=== PATIENT | male | born 1940 | race Caucasian/White ===

== ENCOUNTER 2018-04-12 02:13 | Observation (INO) ==
[2018-04-12 02:33] LABS: Basophils # 0.1 K/mcL (0.0-0.2); Basophils % 0.8 %; Eosinophils # 0.3 K/mcL (0.0-0.6); Eosinophils % 4.2 %; Hematocrit 45.8 % (37.5-50.1); Immature Granulocytes % 0.3 % (0-4); Lymphocytes # 2.2 K/mcL (0.6-4.6); Lymphocytes % 30.1 %; Mean Corpuscular HGB Conc 34.9 g/dL (31.6-35.5); Mean Corpuscular Hemoglobin 33.2 pg (28.0-33.3); Mean Platelet Volume 9.4 fL (9.4-12.4); Monocytes # 0.7 K/mcL (0.0-1.3); Monocytes % 9.3 %; Neutrophils # 4.1 K/mcL (1.6-8.9); Platelet Count 200 K/mcL (140-400); Red Blood Count 4.82 M/mcL (4.19-5.50); Red Cell Distribution Width 12.6 % (11.5-14.5); Segmented Neutrophils % 55.3 %
[2018-04-12 02:48] LABS: Prothrombin Time 11.1 Seconds (9.4-12.1)
[2018-04-12 02:51] LABS: Activated Partial Thrombo Time 28.3 Seconds (26.0-36.0)
[2018-04-12 02:55] LABS: Alanine Aminotransferase 12 Units/L (7-52); Albumin 3.9 g/dL (3.5-5.7); Albumin/Globulin Ratio 1.9 (1.1-2.2); Alkaline Phosphatase 57 Units/L (34-104); Aspartate Amino Transferase 14 Units/L (13-39); BUN/Creatinine Ratio 13 (6-26); Bilirubin,Direct 0.1 mg/dL (0.0-0.2); Bilirubin,Indirect 0.5 mg/dL (0.0-1.2); Bilirubin,Total 0.6 mg/dL (0.3-1.0); Blood Urea Nitrogen 16 mg/dL (8-23); Carbon Dioxide 21 mEq/L (23-29); Chloride 103 mEq/L (98-107); Creatine Kinase 58 Units/L (30-223); Ethanol < 10 mg/dL (Less than 10); Globulin 2.1 g/dL (2.4-3.5); Glucose 127 mg/dL (70-105); Osmolality,Calculated 287 (280-300); Potassium 3.5 mEq/L (3.5-5.1); Sodium 137 mEq/L (136-145); Troponin I < 0.03 ng/mL (< 0.04); eGFR For Non-African Americans 58 (> 60)
--- NOTE | 2018-04-12 03:03 | Emergency Department Note ---
Disposition Clinical Impression: Altered mental status Qualifiers: Altered mental status type: unspecified Qualified Code(s): R41.82 - Altered mental status, unspecified Disposition: Admitted As Inpatient Condition: Fair Referrals: NONE,PCP [Primary Care Provider] - Forms: ED Satisfaction Letter Time of Disposition: 04:09 Altered Mental Status HPI - General Chief Complaint: ED Altered Mental Status Stated Complaint: poss stroke Time Seen by Provider: 04/12/18 02:20 Source: family, EMS Mode of arrival: EMS Limitations: altered mental status Nursing Notes Reviewed: Yes Vital Signs Reviewed: Yes - History of Present Illness HPI Narrative: 77-year-old male presents to the emergency department complaining of altered mental status. He presented here via EMS as family said they found him unconscious on the ground between the bed and the restroom. They were he was having a stroke as he seemed to be slurring his words unable to get words out. Presently called EMS. When EMS arrived he said that he was responsive to voice but it would did not seem to be oriented. He was alert to that. Patient only has cardiac history according to family. His heart get further history from patient but they said he was acting normal prior to this event. He is normally at home takes care of himself and can walk around with no difficulty. He said he does have history of Alzheimer's and this could be worsening they say he has never been this bad. Further history was difficult to get due to patient's altered mental status. - Related Data Allergies Allergy/AdvReac Type Severity Reaction Status Date / Time No Known Allergies Allergy Verified 04/12/18 03:07 Limitations: ROS unobtainable due to patients medical condition Past Medical History - Past Medical History Attestation: Yes The following information was validated with the patient. Source: patient Medical history: Reports: no medical history Psychiatric history: Reports: no psych history - Social History Smoking Status: Former smoker Smokeless Tobacco Status: No Alcohol use: Reports: none Drug use: Reports: none Physical Exam - General Limitations: altered mental status General appearance: alert, in no apparent distress - Head Head exam: atraumatic, normocephalic, normal inspection - Eye Eye exam: Present: normal appearance, PERRL, EOMI - ENT ENT exam: normal exam, normal oropharynx, mucous membranes moist - Neck Neck exam: Present: normal inspection, full ROM, trachea midline - Chest Chest inspection: Present: normal inspection, symmetric chest wall rise. Absent: tenderness - Respiratory Respiratory exam: Present: normal lung sounds bilaterally. Absent: respiratory distress, wheezes, accessory muscle use - Cardiovascular Cardiovascular exam: Present: regular rate, normal rhythm, normal heart sounds - Abdominal Exam Abdominal exam: Present: soft, Non-Tender, normal bowel sounds. Absent: tenderness, distention, guarding, rebound, rigidity - Extremities Exam Extremities exam: Present: normal inspection, full ROM. Absent: tenderness, pedal edema - Back Exam Back exam: Present: normal inspection, full ROM. Absent: tenderness - Neurological Exam Neurological exam: Present: alert - Expanded Neurological Exam Patient oriented to: Present: person. Absent: place, time Speech: Present: fluid speech Cranial nerves: EOM function (II, III, IV, ): Normal, facial sensation (V): Normal, facial palsy (VII): Normal, spinal accessory function (XI): Normal, ton jackie deviation (XII): Normal Motor strength - LUE: 4/5 Motor strength - RUE: 4/5 Motor strength - LLE: 4/5 Motor strength - RLE: 4/5 Upper motor neuron exam: panchito neglect: Absent bilaterally, pronator drift: Absent bilaterally Coma Scale Eye Opening: Spontaneous Coma Scale Motor Response: Localizes to Pain Coma Scale Verbal Response: Confused Coma Scale Total: 13 - Skin Skin exam: Present: warm, dry, intact, normal color Course Course Narrative: Stroke alert was not called: The patient as he had no focal deficits to one side as he was moving and sitting up in the bed but he deftly was confused and his altered. We will get a head neck CT due to him falling. There is noticeable trauma to the head or anywhere else on the body. We will also do broad workup on the patient to find a source of his altered mental status. Disposition most likely will be admission for further evaluation. Vital Signs Temperature 96.6 F L 04/12/18 02:17 Pulse Rate 92 04/12/18 02:17 Respiratory Rate 18 04/12/18 02:17 Blood Pressure 196/103 04/12/18 02:17 O2 Sat by Pulse Oximetry 95 04/12/18 02:17 Temperature 96.6 F L 04/12/18 02:17 Pulse Rate 81 04/12/18 03:08 Respiratory Rate 18 12/04/18 03:08 Blood Pressure 193/98 12/04/18 03:08 O2 Sat by Pulse Oximetry 95 04/12/18 03:08 Oxygen Delivery Oxygen Delivery Room Air Altered Mental Status - MDM Narrative Medical decision making narrative: 77-year-old male here with altered mental status. When he first arrived he was able to move all limbs of stroke alert was not called. He was confused he was alert to self and time but not to place. We did a large workup on him which came back showing no acute abnormalities. CT had neck are both negative. There is no signs of trauma. Chest x-ray also was normal. Family stated in the room with him and they said that as time went along he was becoming a little better but due to the syncopal event we felt that admission was warranted. They said he is not fully back to baseline but he is getting closer. He does have history of Alzheimer's they are wondering if this that was what caused this. Patient has had no recent illnesses prior to this event. Patient is stable at this time. I spoke with the hospitalist Dr. Kwan who agreed to admit the patient to their service. Patient going to be admitted in stable condition. Cervical Spine CT 04/12/18 02:21 IMPRESSION: No definite acute abnormality of the cervical spine. D/ / Blue Madrid MD / Blue Madrid MD Interpreting Provider: Blue Madrid MD Chest X-Ray 04/12/18 02:21 IMPRESSION: Negative portable chest. D/ / Blue Madrid MD / Blue Madrid MD Interpreting Provider: Blue Madrid MD Head CT 04/12/18 02:21 IMPRESSION: Generalized atrophy and moderate chronic small vessel ischemic white matter disease with no acute intracranial abnormality. D/ / Festus Sunshine MD / Festus Sunshine MD Interpreting Provider: Festus Sunshine MD - Medical Records Medical records reviewed: Yes I reviewed the patient's medical records. - Lab Data Lab results reviewed: Yes I reviewed the patient's lab results. Result diagrams: 04/12/18 02:21 04/12/18 02:21 Lab Results 04/12/18 04/12/18 04/12/18 Range/Units 02:21 02:21 02:21 WBC 7.4 (4.3-11.1) K/mcL RBC 4.82 (4.19-5.50) M/mcL Hgb 16.0 (12.9-16.9) g/dL Hct 45.8 (37.5-50.1) % MCV 95.0 (83.0-100.0) fL MCH 33.2 (28.0-33.3) pg MCHC 34.9 (31.6-35.5) g/dL RDW 12.6 (11.5-14.5) % Plt Count 200 (140-400) K/mcL MPV 9.4 (9.4-12.4) fL Immature Gran % 0.3 (0-4) % Seg Neutrophils % 55.3 % Lymphocytes % 30.1 % Monocytes % 9.3 % Eosinophils % 4.2 % Basophils % 0.8 % Neutrophils # 4.1 (1.6-8.9) K/mcL Lymphocytes # 2.2 (0.6-4.6) K/mcL Monocytes # 0.7 (0.0-1.3) K/mcL Eosinophils # 0.3 (0.0-0.6) K/mcL Basophils # 0.1 (0.0-0.2) K/mcL PT 11.1 (9.4-12.1) Seconds INR 1.0 APTT 28.3 (26.0-36.0) Seconds Sodium 137 (136-145) mEq/L Potassium 3.5 (3.5-5.1) mEq/L Chloride 103 (98-107) mEq/L Carbon Dioxide 21 L (23-29) mEq/L BUN 16 (8-23) mg/dL Creatinine 1.21 (0.70-1.30) mg/dL Est GFR ( Amer) > 60 (> 60) Est GFR (Non-Af Amer) 58 L (> 60) BUN/Creatinine Ratio 13 (6-26) Glucose 127 H (70-105) mg/dL Calculated Osmolality 287 (280-300) Calcium 9.0 (8.6-10.3) mg/dL Total Bilirubin 0.6 (0.3-1.0) mg/dL Direct Bilirubin 0.1 (0.0-0.2) mg/dL Indirect Bilirubin 0.5 (0.0-1.2) mg/dL AST 14 (13-39) Units/L ALT 12 (7-52) Units/L Alkaline Phosphatase 57 (34-104) Units/L Ammonia (16-53) mcmol/L Creatine Kinase 58 (30-223) Units/L Troponin I < 0.03 (< 0.04) ng/mL Serum Total Protein 6.0 L (6.4-8.9) g/dL Albumin 3.9 (3.5-5.7) g/dL Globulin 2.1 L (2.4-3.5) g/dL Albumin/Globulin Ratio 1.9 (1.1-2.2) Urine Color (Yellow) Urine Clarity (Clear) Urine pH (5.0-8.0) pH Units Ur Specific [place] (1.010-1.025) Urine Protein (Neg-Trace) mg/dL Urine Glucose (UA) (Normal) mg/dL Urine Ketones (Negative) mg/dL Urine Blood (Negative) Urine Nitrite (Negative) Urine Bilirubin (Negative) Urine Urobilinogen (Normal) mg/dL Ur Leukocyte Esterase (Negative) Urine Microscopic RBC (0-3) per hpf Urine Microscopic WBC (0-3) per hpf Ur Squamous Epith Cells (None-Few) per lpf Urine Bacteria (None-Few) per hpf Hyaline Casts (None-Few) per lpf Ur Culture Indicated? (NO) Urine Opiates Screen (Yggtxs=955) ng/mL Ur Barbiturates Screen (Fdaljr=125) ng/mL Ur Phencyclidine Scrn (Cutoff=25) ng/mL Ur Amphetamines Screen (Hfjhgy=9327) ng/mL U Benzodiazepines Scrn (Jkzqcb=548) ng/mL Urine Cocaine Screen (Cutoff= 300) ng/mL U Marijuana (THC) Screen (Cutoff = 50) ng/mL Ur Drug Screen Interp Ethyl Alcohol < 10 (Less than 10) mg/dL 12/08/2504/12/18 04/12/18 Range/Units 02:21 03:21 03:21 WBC (4.3-11.1) K/mcL RBC (4.19-5.50) M/mcL Hgb (12.9-16.9) g/dL Hct (37.5-50.1) % MCV (83.0-100.0) fL MCH (28.0-33.3) pg MCHC (31.6-35.5) g/dL RDW (11.5-14.5) % Plt Count (140-400) K/mcL MPV (9.4-12.4) fL Immature Gran % (0-4) % Seg Neutrophils % % Lymphocytes % % Monocytes % % Eosinophils % % Basophils % % Neutrophils # (1.6-8.9) K/mcL Lymphocytes # (0.6-4.6) K/mcL Monocytes # (0.0-1.3) K/mcL Eosinophils # (0.0-0.6) K/mcL Basophils # (0.0-0.2) K/mcL PT (9.4-12.1) Seconds INR APTT (26.0-36.0) Seconds Sodium (136-145) mEq/L Potassium (3.5-5.1) mEq/L Chloride (98-107) mEq/L Carbon Dioxide (23-29) mEq/L BUN (8-23) mg/dL Creatinine (0.70-1.30) mg/dL Est GFR ( Amer) (> 60) Est GFR (Non-Af Amer) (> 60) BUN/Creatinine Ratio (6-26) Glucose (70-105) mg/dL Calculated Osmolality (280-300) Calcium (8.6-10.3) mg/dL Total Bilirubin (0.3-1.0) mg/dL Direct Bilirubin (0.0-0.2) mg/dL Indirect Bilirubin (0.0-1.2) mg/dL AST (13-39) Units/L ALT (7-52) Units/L Alkaline Phosphatase (34-104) Units/L Ammonia 51 (16-53) mcmol/L Creatine Kinase (30-223) Units/L Troponin I (< 0.04) ng/mL Serum Total Protein (6.4-8.9) g/dL Albumin (3.5-5.7) g/dL Globulin (2.4-3.5) g/dL Albumin/Globulin Ratio (1.1-2.2) Urine Color Yellow (Yellow) Urine Clarity Clear (Clear) Urine pH 6.5 (5.0-8.0) pH Units Ur Specific [place] 1.010 (1.010-1.025) Urine Protein Trace (Neg-Trace) mg/dL Urine Glucose (UA) 100 H (Normal) mg/dL Urine Ketones Negative (Negative) mg/dL Urine Blood Trace H (Negative) Urine Nitrite Negative (Negative) Urine Bilirubin Negative (Negative) Urine Urobilinogen Normal (Normal) mg/dL Ur Leukocyte Esterase Negative (Negative) Urine Microscopic RBC 0-3 (0-3) per hpf Urine Microscopic WBC 0-3 (0-3) per hpf Ur Squamous Epith Cells Moderate H (None-Few) per lpf Urine Bacteria None Seen (None-Few) per hpf Hyaline Casts None Seen (None-Few) per lpf Ur Culture Indicated? NO (NO) Urine Opiates Screen Negative (Qhcckp=458) ng/mL Ur Barbiturates Screen Negative (Tpmowa=937) ng/mL Ur Phencyclidine Scrn Negative (Cutoff=25) ng/mL Ur Amphetamines Screen Negative (Dccefq=4894) ng/mL U Benzodiazepines Scrn Negative (Pllowk=384) ng/mL Urine Cocaine Screen Negative (Cutoff= 300) ng/mL U Marijuana (THC) Screen Negative (Cutoff = 50) ng/mL Ur Drug Screen Interp See Below Ethyl Alcohol (Less than 10) mg/dL - Radiology Data Radiology results reviewed: Yes I reviewed the patient's radiology results. - EKG Data EKG attestation: Yes I reviewed and interpreted this EKG. EKG results narrative: EKG done at 0 223 review myself and the attending shows sinus rhythm a rate of 93, [place] able to 26, QRS 113, QTC 476. There is no acute ST changes no acute T- wave changes there is ST depression in leads V4 through V6. No heart block, hypertrophy, heart strain. No WPW/Brugada/HOCM. No old EKG to compare with TPA Checklist - LKW: 3-4.5 hrs Add. Warnings/Precautions Patient/family understanding: The patient/family members have been counseled and understood the risk, benefit, and alternatives of treatment. Attestation Statement - Attestation Attestation: Dr. Rosales note: Patient was seen in conjunction with resident Dr. Fito Ragsdale; please see his charting for complete documentation. I spent [id number] time with the patient and I agree with the patient's treatment and disposition. Patient via medic after heard him pass out the bathroom. He was on the floor but moving all extremities gradually more arousable and round on arrival. At baseline his mental status is not normal as he has chronic dementia according to his son who arrives at bedside. There is no external signs of trauma. He follows commands. He moves all extremities. Testing is unremarkable. Mental status is slowly coming back to normal. Admitted for syncope and altered mental status to the hospitalist and improved condition at AM
[2018-04-12 03:39] LABS: Amphetamine Screen,Urine Negative ng/mL (Cutoff=1000); Barbiturate Screen,Urine Negative ng/mL (Cutoff=200); Benzodiazepines Screen,Urine Negative ng/mL (Cutoff=200); Cannabinoid Screen,Urine Negative ng/mL (Cutoff = 50); Cocaine Screen,Urine Negative ng/mL (Cutoff= 300); Opiate Screen,Urine Negative ng/mL (Cutoff=300); Phencyclidine Screen,Urine Negative ng/mL (Cutoff=25)
[2018-04-12 03:44] LABS: Bacteria,Urine None Seen per hpf (None-Few); Bilirubin,Urine Negative (Negative); Blood,Urine Trace (Negative); Clarity,Urine Clear (Clear); Color,Urine Yellow (Yellow); Glucose,Urine (UA) 100 mg/dL (Normal); Hyaline Casts,Urine None Seen per lpf (None-Few); Ketones,Urine Negative (Negative); Leukocyte Esterase,Urine Negative (Negative); Nitrite,Urine Negative (Negative); PH,Urine 6.5 pH Units (5.0-8.0); Protein,Urine Trace mg/dL (Neg-Trace); RBC,Urine 0-3 per hpf (0-3); Squamous Epithelial Cell,Urine Moderate per lpf (None-Few); Urobilinogen,Urine Normal (Normal); WBC,Urine 0-3 per hpf (0-3)
[2018-04-12] MEDS ORDERED: Naloxone 0.4 MG/ML INJ IVP PRN (05:54)
[2018-04-12] MEDS ORDERED: Acetaminophen 325 MG TABLET PO PRN (05:54)
--- NOTE | 2018-04-12 06:11 | Internal Med History&Physical ---
Date of Encounter: 04/12/18 Time of Encounter: 05:30 Internal Medicine - H&P: HPI Chief complaint: syncope; confusion Admitted From: Emergency Dept Plans for Post Hospital Care: Home History of present illness: Mr. Adamson is a 77 year old male who presents to the ER this morning after sustaining a syncopal event. This was unwitnessed, His found him passed out on the floor. She called her children and EMS who brought patient to the hospital. Upon arrival to the ER, patient was confused, disoriented, and mini indra talkative or arousable. Since then, he has improved dramatically according to the son. However, he still remains confused and disoriented. Patient is unable to provide any history to me. History is obtained exclusively from his son. He is alert and oriented 1 (self only). He denies any chest pain, shortness of breath, chest pressure, nausea, or vomiting. Patient's son confirms patient has a history of heart disease and had an OK about 10 years ago. Patient's son denies patient having history of dementia. However, upon further questioning, patient has been suffering from significant memory loss, forgetfulness, and some odd behaviors at home for last year. He has never been missing or wandered off. He did drive his car recently to local outboard motor mechanic shop for repairs and does not remember how he got there. There have been other family members concerned that he has underlying dementia, but he has not been formally diagnosed. Regarding his medications, his son does not know any of his medications and we do not have access to any medication list. There is concern that patient may have inadvertently taken extra medication or an appropriate medication as prescribed. Patient does not have a history of diabetes. There was no reports of hypoglycemia by EMS or ER. Past Med Surg Social Fam HX - Past Medical History Medical history: hypertension, myocardial infarction Psychiatric history: no psych history - Social History Smoking Status: Former smoker Smokeless Tobacco Status: No Alcohol use: none Drug use: none Internal Medicine - H&P: Meds Allergy/AdvReac Type Severity Reaction Status Date / Time No Known Allergies Allergy Verified 04/12/18 03:07 ROS unobtainable: due to mental status Review of systems: as per [place] per son; otherwise unobtainable - Constitutional Vitals: Temp Pulse Resp BP Pulse Ox 98.0 F 85 16 184/96 92 12/04/18 04:55 04/12/18 04:55 04/12/18 04:55 04/12/18 04:55 04/12/18 04:55 General appearance: Present: cooperative, A&O X 3, pleasant, no acute distress, loss of weight Exam: pleasantly confused; no acute distress - Head Head exam: Present: atraumatic (no sign of abrasion, laceration, bruising or other injury to suspect head trauma), normal inspection - Eye Eye exam: Present: EOMI, PERRL. Absent: scleral icterus Pupils: Present: normal accommodation - ENT ENT exam: Present: mucous membranes dry, normal exam, normal oropharynx - Neck Neck exam general surgery: Present: full ROM, supple. Absent: tenderness, nuchal rigidity, thyromegaly - Expanded Neck Exam Neck exam: Absent: carotid bruit - Respiratory Respiratory exam: Present: CTAB. Absent: chest wall tenderness, rales, respiratory distress, rhonchi, wheezes - Cardiovascular Cardiovascular exam: Present: distant heart sounds, RRR, +S1, +S2. Absent: diastolic murmur, JVD, systolic murmur, tachycardia - GI/Abdominal GI/Abdominal exam: Present: normal bowel sounds, soft. Absent: guarding, hepatomegaly, rebound, splenomegaly, tenderness - Extremities Exam Extremities exam: Present: full ROM, normal capillary refill, warm, radial pulses palpable and symmetrical. Absent: calf tenderness, joint swelling, pedal edema, tenderness - Back Exam Back exam: Absent: CVA tenderness (L), CVA tenderness (R) - Neurological Exam Neurological exam: Present: alert, CN II-XII intact, no focal deficits, strengths equal and symetr throughout. Absent: motor sensory deficit, oriented X3, pronater drift, facial droop, speech deficit - Psychiatric Psychiatric exam: Present: flat affect. Absent: homicidal ideation, suicidal ideation - Skin Skin exam: Present: dry, intact, warm Internal Med - H&P Results - Labs CBC & Chem 7: 04/12/18 02:21 04/12/18 02:21 Labs: Short CBC 04/12/18 Range/Units 02:21 WBC 7.4 (4.3-11.1) K/mcL Hgb 16.0 (12.9-16.9) g/dL Hct 45.8 (37.5-50.1) % Plt Count 200 (140-400) K/mcL Neutrophils # 4.1 (1.6-8.9) K/mcL BMP 04/12/18 02:21 Sodium 137 Potassium 3.5 Chloride 103 Carbon Dioxide 21 L BUN 16 Creatinine 1.21 Glucose 127 H Calcium 9.0 Cardiac Enzymes 04/12/18 Range/Units 02:21 Troponin I < 0.03 (< 0.04) ng/mL Liver Function 04/12/18 Range/Units 02:21 Total Bilirubin 0.6 (0.3-1.0) mg/dL Direct Bilirubin 0.1 (0.0-0.2) mg/dL AST 14 (13-39) Units/L ALT 12 (7-52) Units/L Alkaline Phosphatase 57 (34-104) Units/L Albumin 3.9 (3.5-5.7) g/dL Urine 04/12/18 Range/Units 03:21 Urine Color Yellow (Yellow) Urine Clarity Clear (Clear) Urine pH 6.5 (5.0-8.0) pH Units Ur Specific [place] 1.010 (1.010-1.025) Urine Protein Trace (Neg-Trace) mg/dL Urine Glucose (UA) 100 H (Normal) mg/dL - EKG Data -: EKG Interpreted by Myself - EKG Data Prior EKG available for review: yes Interpretation IM: ischemic changes EKG comments: 04/12/18 06:[address]-T depression slightly. - Impressions ITS Impressions Cervical Spine CT 04/12/18 02:21 IMPRESSION: No definite acute abnormality of the cervical spine. D/ / Blue Madrid MD / Blue Madrid MD Interpreting Provider: Blue Madrid MD Chest X-Ray 04/12/18 02:21 IMPRESSION: Negative portable chest. D/ / Blue Madrid MD / Blue Madrid MD Interpreting Provider: Blue Madrid MD Head CT 04/12/18 02:21 IMPRESSION: Generalized atrophy and moderate chronic small vessel ischemic white matter disease with no acute intracranial abnormality. D/ / Festus Sunshine MD / Festus Sunshine MD Interpreting Provider: Festus Sunshine MD - Diagnostic Studies Chest x-ray Status: image reviewed by me (negative) - Assessment and plan (1) Syncope Current Visit: Yes Status: Acute Assessment and plan: 1. Will cycle troponins, EKG's, and place on telemetry. 2. Will order ECHO and carotid Dopplers. 3. Will monitor glucose levels for hypoglycemia. 4. Will monitor serial neurochecks and order MRI brain. 5. Need to obtain and verify home medication list; given his forgetfulness, I am concerned about medication misuse. Qualifiers: Syncope type: unspecified Qualified Code(s): R55 - Syncope and collapse (2) Encephalopathy acute Current Visit: Yes Status: Acute Assessment and plan: 1. Urinalysis does not suggest UTI. 2. Need to obtain and confirm home meds list -- concern for polypharmacy and/or medication misuse. 3. Do not suspect stroke based upon history obtained from son and clinical exam. 4. Neurochecks Q4hour and will order MRI brain. (3) DVT prophylaxis Current Visit: Yes Status: Acute Assessment and plan: 1. Heparin SQ.
[2018-04-12] MEDS: 0.9 % Sodium Chloride w KCl 20 MEQ/1,000 ML MLS IVC SCH ×2 (06:51→18:17)
[2018-04-12] MEDS: *HR* Heparin 5,000 UNIT/ML VIAL SQ SCH ×2 (06:52→18:04)
[2018-04-12] MEDS: hydroCHLOROthiazide 25 MG TABLET PO SCH (12:22)
--- NOTE | 2018-04-12 13:01 | EEG/EMG/Oth Biometrics Report ---
EEG Procedure Report EEG Procedure: Routine EEG Procedure Note: This is a routine 21 channel digital EEG performed utilizing 10- 20 international electrode placement system. FINDINGS: Patient has a predominant waking background frequency that is average voltage 4 to 8 Hertz delta and theta activity in the posterior region, low amplitude symmetrical over the both hemispheres reactive to eyes opening and closing record continued to show delta activity intermixed with some theta off and on, no abnormal activity recorded, predominantly no evidence of any spike wave discharges or any lateralizing abnormalities, Photic stimulation and hyperventilation did not produce any convulsive response. Intermittent EMG jennifer facts were noted. Stage II sleep was not achieved. Impression: Abnormal awake drowsy electroencephalogram. Generalized slowing is a nonspecific pattern mostly seen in patient with metabolic toxic encephalopathy consistent with mild diffuse cerebral dysfunction , No epileptiform discharges or any other paroxysmal activities noted.
--- NOTE | 2018-04-12 13:07 | Electrocardiograph Report ---
[address] [place], [place] [address] Test Date: 2018-04-12 Pat Name: Fransico Adamson Department: [id number] Room: 3B23 Gender: M Try On Baster: : 1940 Requested By: Fito Ragsdale Order Number: [id number] Reading MD: Reginaldo Alcala Measurements Intervals [place] Rate: 93 P: 52 MT: 226 QRS: 8 QRSD: 113 T: -83 QT: 382 QTc: 476 Interpretive Statements Sinus rhythm Prolonged MT interval Borderline intraventricular conduction delay Repol abnrm suggests ischemia, diffuse leads Electronically Signed On 04-12-2018 13:05:52 EST by Reginaldo Alcala
--- NOTE | 2018-04-12 14:52 | Internal Med Progress Note ---
Hospitalist Progress Note - Encounter Date of Encounter: 04/12/18 Time of Encounter: 14:50 - Subjective Interval History: Mr. Adamson is a 77 year old male with known past medical history of hypertension, CAD and dementia who was brought into the ER by his family after sustaining a syncopal event. This was unwitnessed, His found him passed out on the floor. She called her children and EMS who brought patient to the hospital. Upon arrival to the ER, patient was confused, disoriented, and minimally talkative or arousable. Patient was admitted in the hospital and placed him on quality assurance monitor final. His EKG showed sinus rhythm with no ischemic changes and no arrhythmias noticed. Today patient is alert, awake and oriented to self only he still looks confused and demented. - Exam Vitals: Temp Pulse Resp BP Pulse Ox 98.0 F 80 16 178/102 93 04/12/18 11:23 04/12/18 11:23 04/12/18 11:23 04/12/18 11:23 04/12/18 11:23 Exam: Gen: Alert, awake, Oriented to self only..Looks demented Chest: Diminished breath sounds B/L, No wheezing, No crackles, No rales Heart: S1S2+ RRR No murmurs Abd: Soft, NT, BS +, No organomegaly Ext: No edema, pulses are palpable, No calf tenderness Neuro : no motor sensory deficit noticed.. Patience is pleasantly demented.. No focal deficit noticed Skin: No rash. - Assessment and Plan (1) Syncope Current Visit: Yes Status: Acute Assessment and Plan: His initial presentation was concerning for seizure activity so I did check EEG which came back as generalized slowing consistent with metabolic, toxic encephalopathy as well as diffuse cerebral dysfunction. No epileptiform activity noticed his stroke workup CT of the head did not show any acute intracranial abnormality. His echocardiogram showed preserved LVEF with the mild left ventricular diastolic dysfunction. His bilateral carotid arteries have minimal plaque throughout on carotid Doppler his brain MRI showed small area of restricted diffusion within the left parietal occipital lobe compatible with acute to subacute infarct. Pt was on plavix at home, so added asa 81mg now cont Crestor ordered FLP not a candidate for tPA due to prolonged duration of symptoms and resolved neurology consulted for further evaluation PT/OT eval talked to the family at bedside and explained to them about current care (2) CVA (cerebral vascular accident) Current Visit: Yes Status: Acute Assessment and Plan: Brain MRI showed small area of restricted diffusion within the left parietal occipital lobe compatible with acute to subacute infarct. Cont Plavix + ASA + Statin Neuro eval (3) Encephalopathy acute Current Visit: Yes Status: Acute Assessment and Plan: Mostly due to stroke as well as advanced dementia (4) DVT prophylaxis Current Visit: Yes Status: Acute Assessment and Plan: 1. Heparin SQ. (5) HLD (hyperlipidemia) Current Visit: Yes Status: Acute - Time Spent with Patient Total time spent is greater than 50% in coordination of care (as documented) at patient's floor/unit and/or counseling patient: Internal Medicine: Result - Labs CBC & Chem 7: 04/12/18 02:21 04/12/18 02:21 Labs: Short CBC 04/12/18 Range/Units 02:21 WBC 7.4 (4.3-11.1) K/mcL Hgb 16.0 (12.9-16.9) g/dL Hct 45.8 (37.5-50.1) % Plt Count 200 (140-400) K/mcL Neutrophils # 4.1 (1.6-8.9) K/mcL BMP 04/12/18 02:21 Sodium 137 Potassium 3.5 Chloride 103 Carbon Dioxide 21 L BUN 16 Creatinine 1.21 Glucose 127 H Calcium 9.0 Cardiac Enzymes 04/12/18 04/12/18 Range/Units 02:21 09:26 Troponin I < 0.03 0.04 H* (< 0.04) ng/mL Liver Function 04/12/18 Range/Units 02:21 Total Bilirubin 0.6 (0.3-1.0) mg/dL Direct Bilirubin 0.1 (0.0-0.2) mg/dL AST 14 (13-39) Units/L ALT 12 (7-52) Units/L Alkaline Phosphatase 57 (34-104) Units/L Albumin 3.9 (3.5-5.7) g/dL Urine 04/12/18 Range/Units 03:21 Urine Color Yellow (Yellow) Urine Clarity Clear (Clear) Urine pH 6.5 (5.0-8.0) pH Units Ur Specific [place] 1.010 (1.010-1.025) Urine Protein Trace (Neg-Trace) mg/dL Urine Glucose (UA) 100 H (Normal) mg/dL - ABG Interpretation ABG results: PT/INR, D-dimer PT 11.1 Seconds (9.4-12.1) 04/12/18 02:21 - Impressions Impressions Cervical Spine CT 04/12/18 02:21 IMPRESSION: No definite acute abnormality of the cervical spine. D/ / Blue Madrid MD / Blue Madrid MD Interpreting Provider: Blue Madrid MD Chest X-Ray 04/12/18 02:21 IMPRESSION: Negative portable chest. D/ / Blue Madrid MD / Blue Madrid MD Interpreting Provider: Blue Madrid MD Head CT 04/12/18 02:21 IMPRESSION: Generalized atrophy and moderate chronic small vessel ischemic white matter disease with no acute intracranial abnormality. D/ / Festus Sunshine MD / Festus Sunshine MD Interpreting Provider: Festus Sunshine MD Brain MRI 04/12/18 05:54 IMPRESSION: Small area of restricted diffusion within the left parieto-occipital lobe, most compatible with small area of acute to subacute infarct. No associated hemorrhage. Chronic small vessel ischemic white matter disease and diffuse cerebral volume loss. The findings were sent to the Radiology Results Communication [facility] at 1:25 pm on 04/12/2018to be communicated to a licensed caregiver. D/ / 04/12/2018 13:27:47 Josh Araya MD / clif Interpreting Provider: Josh Araya MD Echocardiogram 04/12/18 05:54 Impressions: LVEF 60-65%. Normal LV chamber size and systolic function. Mild concentric left ventricular hypertrophy. Mild left ventricular diastolic dysfunction. Normal right ventricular structure and function. No significant valvular dysfunction. Unable to estimate RVSP due to lack of TR jet. Mildly dilated aortic root and ascending aorta. Left Ventricular Wall Motion: Rest Echo Findings All wall segments showed normal motion. Findings: Study Quality * Technically adequate exam. ECG Findings * Sinus rhythm with PACs and PVCs. Left Ventricle * LVEF 60-65%. * Normal LV chamber size and systolic function. * Mild concentric left ventricular hypertrophy. * Mild left ventricular diastolic dysfunction. * Definity echo contrast was not used. Right Ventricle * Normal right ventricular structure and function. Left Atrium * Normal left atrial size. Right Atrium * Normal right atrial size. Interatrial Septum * Interatrial septum not well evaluated. * No evidence of PFO by color Doppler. Aortic Valve * Trileaflet aortic valve. * No aortic stenosis. * No aortic regurgitation. Mitral Valve * Mild mitral annular calcification * No mitral stenosis. * No mitral regurgitation. Tricuspid Valve * Normal tricuspid valve structure and function. * No tricuspid stenosis. * Trace tricuspid regurgitation. * Estimated RA pressure is 8 mmHg. * Unable to estimate RVSP due to lack of TR jet. Pulmonic Valve * Pulmonic valve is not well visualized. * No pulmonic stenosis. * Trace pulmonic regurgitation. Aorta * The aortic root is mildly dilated. * The aortic root is 4.1 cm. * Mild dilatation of ascending aorta 3.7cm. Pericardium * The pericardium appears normal. IVC * Normal IVC dimensions and inspiratory collapse. Consult Discharge Plan - Plan Referrals: NONE,PCP [Primary Care Provider] - (1) Syncope Qualifiers: Syncope type: unspecified Qualified Code(s): R55 - Syncope and collapse
--- NOTE | 2018-04-12 15:29 | Neurology - Consult Note ---
Date of Encounter: 04/12/18 Time of Encounter: 14:26 Assessment and Plan (1) CVA (cerebral vascular accident) Current Visit: Yes Status: Acute Plan: For secondary stroke prevention patient should continue daily antiplatelet medication and vascular risk factor modification. Order the following test, *MRI of the brain without contrast. Already completed and was reviewed *Antiplatelet medication, aspirin 81 mg daily. Along with Plavix 75 mg daily *Consult physical therapy/ rehabilitation * To reduce the risk of future ischemic stroke patient need continued vascular risk modification, following's are the recommended guidelines LDL goal less than 70 MG per deciliter Smoking cessation reinforced. Diabetes management Blood pressure control should achieve less than 130/80 mmHg BP management should aim to achieve long-term control in a reasonable amount of time. Patient probably would benefit from physical therapy evaluation for gait and balance training Patient to continue to follow-up with his primary care physician for continued outpatient risk factor management and modification. Qualifiers: CVA mechanism: unspecified Qualified Code(s): I63.9 - Cerebral infarction, unspecified (2) Memory loss or impairment Current Visit: Yes Status: Acute May have a mild dementia at the moment because of acute illness not a good time to evaluate for dementia he would need in neurology follow-up as an outpatient may need to be on some medication will start later after the evaluation discussed with the family agrees with the plan (3) Altered mental status Current Visit: Yes Status: Acute Qualifiers: Altered mental status type: unspecified Qualified Code(s): R41.82 - Altered mental status, unspecified History of Present Illness HPI: Mr. Adamson is a 77 year old male with Past medical history of hypertension, CAD and dementia who was brought into the ER by his family after sustaining a syncopal event. according to she found him passed out on the floor. She called her children and EMS who brought patient to the hospital. Upon arrival to the ER, patient was confused, disoriented, CT head was negative, he was admitted in the hospital for work up, had MRI of brain that showed Small area of restricted diffusion within the left parieto-occipital lobe, most compatible with small area of acute to subacute infarct. No associated hemorrhage. Chronic small vessel ischemic white matter disease and diffuse cere bral volume loss was reorted patient is alert, awake and oriented to self and place able to follow commands, According to the family he is been having some memory problems for the past year or so but able to recognize the family, and need some help in daily activities Past Med Surg Social Fam HX - Past Medical History Medical history: hypertension, myocardial infarction Psychiatric history: no psych history - Social History Smoking Status: Former smoker Smokeless Tobacco Status: No Alcohol use: none Drug use: none Medications and Allergies Clopidogrel [Plavix] 75 mg PO DAILY 04/12/18 [History] Losartan Potassium [Cozaar] 100 mg PO DAILY 04/12/18 [History] Rosuvastatin [Crestor] 50 mg PO HS 04/12/18 [History] hydroCHLOROthiazide [Hydrochlorothiazide] 25 mg PO DAILY 04/12/18 [History] Allergy/AdvReac Type Severity Reaction Status Date / Time No Known Allergies Allergy Verified 04/12/18 03:07 All Systems: The remainder of the systems were reviewed and are negative Physical Examination - Vital Signs Vital Signs: Initial Vital Signs Temp Pulse Resp BP Pulse Ox 96.6 F L 92 18 196/103 95 04/12/18 02:17 04/12/18 02:17 04/12/18 02:17 04/12/18 02:17 04/12/18 02:17 - Exam Exam: GENERAL: Comfortable in no acute distress HEENT: Normal LUNGS: CTA HEART: RRR, S1 S2 Audible, no murmur EXTREMITIES: No Pedal edema. DETAILED NEUROLOGICAL EXAMINATION: MENTAL STATUS: Oriented to person, place, Memory: dont knows the President, not Aware of recent events Recent Memory decrease, Attention span is normal Cranial Nerve Examination: CN - II: Visual Acuity, Field of Vision Normal, Fundus examination: No disk edema, Pupils- size shape reaction to light and accommodation: All normal. CN III, IV, : External ocular movements were intact, Pupils were reactive, Nodrooping of the eyelids CN V: Sensation over the face to light touch and pinprick all normal. Corneal reflexes not tested, jaw jerk normal. CN VII: No facial asymmetry, no flattening of nasolabial folds, no difficulty in closing the eyes, no loss of forehead wrinkles, no difficulty in eye-closure, frowning raising eyebrows. CNVIII: No significant hearing loss CN IX, X: Uvula centralized not deviated, Gag reflex: Not tested CN X1: Sternocleidomastoid, trapezius, normal or evidence of any weakness. CN X11: No Dysarthria, no wasting or fibrilation f tongue muscles, no deviation, tongue muscle strength normal. Motor examination: No hypertrophy, tone was normal, power grade 0-5 Upper limbs Proximal- No difficulty in lifting the arms above the head. Distal- No weakness in distal muscles On formal testing 4/4 all over Lower limbs On formal testing 4/4 all over Coordination: [id number] normal. Target pursuit normal finger tapping normal, Rapid alternating moment of wrist normal Sensory system: Superficial sensations- Touch normal. Pain- Pinprick, Temperature inconsistent Deep tendon reflexes. Symmetrical bilateral, No evidence of Babinski. No sign of meningeal irritation Gait Examination: Deferred - Constitutional General appearance: comfortable Results - Laboratory Findings CBC and BMP: 04/12/18 02:21 04/12/18 02:21 Abnormal lab findings: Abnormal lab results Carbon Dioxide 21 mEq/L (23-29) L 04/12/18 02:21 Est GFR (Non-Af Amer) 58 (> 60) L 04/12/18 02:21 Glucose 127 mg/dL (70-105) H 04/12/18 02:21 Troponin I 0.04 ng/mL (< 0.04) H* 04/12/18 09:26 Serum Total Protein 6.0 g/dL (6.4-8.9) L 04/12/18 02:21 Globulin 2.1 g/dL (2.4-3.5) L 04/12/18 02:21 Urine Glucose (UA) 100 mg/dL (Normal) H 04/12/18 03:21 Urine Blood Trace (Negative) H 04/12/18 03:21 Ur Squamous Epith Cells Moderate per lpf (None-Few) H 04/12/18 03:21 - Diagnostic Findings Additional findings: MRI showed : Small area of restricted diffusion within the left parieto-occipital lobe, most compatible with small area of acute to subacute infarct. No associated hemorrhage. Chronic small vessel ischemic white matter disease and diffuse cerebral volume loss. Consult Discharge Plan - Plan Referrals: NONE,PCP [Primary Care Provider] -
[2018-04-12] MEDS: Aspirin Enteric Coated 81 MG Tablet PO SCH (15:47)
[2018-04-12] MEDS ORDERED: Haloperidol Lactate 5 MG/ML VIAL IVP ONE (21:55)
[2018-04-13] MEDS ORDERED: diazePAM 10 MG/2 ML SYRINGE IVP ONE (03:59)
[2018-04-13] MEDS: *HR* Heparin 5,000 UNIT/ML VIAL SQ SCH (06:27)
[2018-04-13 07:02] VITALS: BP 165/76
[2018-04-13] MEDS: hydroCHLOROthiazide 25 MG TABLET PO SCH (08:16)
[2018-04-13] MEDS: Aspirin Enteric Coated 81 MG Tablet PO SCH (08:16)
--- NOTE | 2018-04-13 10:05 | Discharge Summary ---
- NOTES TO OUTPATIENT PROVIDER Notes to Outpatient Provider: Follow up with PCP in one week. Please start taking Aspirin 81mg along with Plavix 75mg for your current stroke. Please start taking Norvasc 5mg PO daily along with your other BP medications for better BP control Orders not resulted at time of discharge: Pending orders 04/12/18 06:00 ECG 12 lead ECG [ECG] AM 0600 04/13/18 04:00 Complete Blood Count [HEME] AM 0400 Comprehensive Metabolic Panel AM 0400 Lipid Panel AM 0400 Magnesium AM 0400 Date of Encounter: 04/13/18 Time of Encounter: 10:01 - Discharge Diagnosis (1) CVA (cerebral vascular accident) Priority: Primary Status: Acute Qualifiers: CVA mechanism: unspecified Qualified Code(s): I63.9 - Cerebral infarction, unspecified (2) Syncope Priority: Primary Status: Acute Qualifiers: Syncope type: unspecified Qualified Code(s): R55 - Syncope and collapse (3) Encephalopathy acute Priority: Secondary Status: Acute (4) DVT prophylaxis Priority: Secondary Status: Acute (5) HLD (hyperlipidemia) Priority: Secondary Status: Acute Qualifiers: Hyperlipidemia type: unspecified Qualified Code(s): E78.5 - Hyperlipidemia, unspecified Hospital course: Mr. Adamson is a 77 year old male with known past medical history of hypertension, CAD and dementia who was brought into the ER by his family after sustaining a syncopal event. This was unwitnessed, His found him passed out on the floor. She called her children and EMS who brought patient to the hospital. Upon arrival to the ER, patient was confused, disoriented, and minimally talkative or arousable. Patient was admitted in the hospital and placed him on cafeteria monitor. His EKG showed sinus rhythm with no ischemic changes and no arrhythmias noticed. His stroke workup CT of the head did not show any acute intracranial abnormality. His brain MRI showed small area of restricted diffusion within the left parietal occipital lobe compatible with acute to subacute infarct.His echocardiogram showed preserved LVEF with the mild left ventricular diastolic dysfunction. His bilateral carotid arteries have minimal plaque throughout on carotid Doppler. Pt was on plavix at home, so added asa 81mg now . Pt was evaluated by neurology recommend to continue ASA + Plavix and Crestor. He was not a candidate for tPA. Pt was seen by PT / OT who recommend home PT / OT. So will d/c him home in stable condition today. - Time Spent with Patient Total time spent providing and/or coordinating discharge services: - Discharge Medications Prescriptions: amLODIPine [Norvasc] 5 mg PO DAILY #30 tablet Aspirin Enteric Coated [Aspirin EC] 81 mg PO DAILY #30 tablet. Home Medications: Clopidogrel [Plavix] 75 mg PO DAILY 04/12/18 [History] Losartan Potassium [Cozaar] 100 mg PO DAILY 04/12/18 [History] hydroCHLOROthiazide [Hydrochlorothiazide] 25 mg PO DAILY 04/12/18 [History] Aspirin Enteric Coated [Aspirin EC] 81 mg PO DAILY #30 tablet. 04/13/18 [Rx] Rosuvastatin [Crestor] 40 mg PO HS #0 04/13/18 [Rx] amLODIPine [Norvasc] 5 mg PO DAILY #30 tablet 04/13/18 [Rx] Allergies/Adverse Reactions: Allergy/AdvReac Type Severity Reaction Status Date / Time No Known Allergies Allergy Verified 04/12/18 03:07 Date of admission: 04/12/18 04:17 Primary care physician: PCP NONE Consults: 04/12/18 05:34 Consult to Environmental Air Specialist [CONS] Routine Reason for SW Consult: AMS 04/12/18 12:42 Consult to Interpret Exam [CONS] Routine Consulting Provider: Irlanda Singh I Consult to Interpret Exam: Interpret EEG 04/12/18 14:14 Consult to Occupational Therapy [CONS] Routine Comment: Evaluate, develop and implement POC Reason for Consult: CVA Does patient have active BEDREST order?: No Is patient medically & hemodynamically stable?: Yes Consult to Physical Therapy [CONS] Routine Comment: Evaluate, develop and implement POC Reason for Consult: CVA Does patient have active BEDREST order?: No Is patient medically & hemodynamically stable?: Yes 04/12/18 14:41 Consult to Neurology [CONS] Routine Consulting Provider: [facility] Reason for Consult: Acute CVA Time Notified: 14:41 Call Completed: Yes - Constitutional Vitals: Temp Pulse Resp BP Pulse Ox 97.3 F L 65 16 165/76 93 04/13/18 07:00 04/13/18 07:00 04/13/18 07:00 04/13/18 07:00 04/13/18 07:00 General appearance: Present: cooperative, A&O X 3, pleasant, no acute distress, loss of weight Exam: Gen: Alert, awake, Oriented to self only..Looks demented Chest: Diminished breath sounds B/L, No wheezing, No crackles, No rales Heart: S1S2+ RRR No murmurs Abd: Soft, NT, BS +, No organomegaly Ext: No edema, pulses are palpable, No calf tenderness Neuro : no motor sensory deficit noticed.. Patience is pleasantly demented.. No focal deficit noticed Skin: No rash. - Patient Status Disposition: Home Health Service Condition: Good Overall status at discharge: patient is back to baseline - Discharge Instructions Follow Up With: NONE,PCP [Primary Care Provider] - Martha Marsh DO [Partnered Physician] - - Diet and Activity Activity: as per physical therapy, increase activity as tolerated Diet: low salt diet
--- NOTE | 2018-04-13 10:07 | Physician Discharge Referral ---
Home Health/Hosp Referral Info Transfer to: Home Health Provider in Charge Post Discharge: PCP - Diagnosis (1) CVA (cerebral vascular accident) Status: Acute (2) Syncope Status: Acute (3) Encephalopathy acute Status: Acute (4) DVT prophylaxis Status: Acute (5) HLD (hyperlipidemia) Status: Acute - Respiratory Orders Smoking Cessation: Smoking cessation has been advised. For more information, call the [place] Tobacco Quit Line at 4-875-UJOH-NOW. - Services Needed Following services are medically necessary services: Nursing, Physical Therapy, Occupational Therapy - Transfer Medications Prescriptions: amLODIPine [Norvasc] 5 mg PO DAILY #30 tablet Aspirin Enteric Coated [Aspirin EC] 81 mg PO DAILY #30 tablet. Home Medications: Clopidogrel [Plavix] 75 mg PO DAILY 04/12/18 [History] Losartan Potassium [Cozaar] 100 mg PO DAILY 04/12/18 [History] hydroCHLOROthiazide [Hydrochlorothiazide] 25 mg PO DAILY 04/12/18 [History] Aspirin Enteric Coated [Aspirin EC] 81 mg PO DAILY #30 tablet. 04/13/18 [Rx] Rosuvastatin [Crestor] 40 mg PO HS #0 04/13/18 [Rx] amLODIPine [Norvasc] 5 mg PO DAILY #30 tablet 04/13/18 [Rx] Allergies/Adverse Reactions: Allergy/AdvReac Type Severity Reaction Status Date / Time No Known Allergies Allergy Verified 04/12/18 03:07 Certification: Further, I certify that my clinical findings support that this patient is homebound (i.e. absences from home require considerable and taxing effort and are for medical reasons or protestant services or infrequently or short duration when for other reasons) because: Homebound Reason: Patient requires assistance of a person or device to safely leave home Attestation: My signature below is to certify that this patient is under my care and that I, or nurse practitioner, or a physician's fiscal assistant working with me, has a [id number] encounter with this patient.
[2018-04-13 11:01] LABS: Basophils # 0.1 K/mcL (0.0-0.2); Basophils % 0.5 %; Eosinophils # 0.1 K/mcL (0.0-0.6); Eosinophils % 1.1 %; Hematocrit 47.3 % (37.5-50.1); Hemoglobin 16.6 g/dL (12.9-16.9); Immature Granulocytes % 0.1 % (0-4); Lymphocytes # 1.2 K/mcL (0.6-4.6); Mean Corpuscular HGB Conc 35.1 g/dL (31.6-35.5); Mean Corpuscular Hemoglobin 33.1 pg (28.0-33.3); Mean Corpuscular Volume 94.2 fL (83.0-100.0); Mean Platelet Volume 9.7 fL (9.4-12.4); Monocytes # 0.7 K/mcL (0.0-1.3); Monocytes % 8.1 %; Platelet Count 228 K/mcL (140-400); Red Blood Count 5.02 M/mcL (4.19-5.50); Red Cell Distribution Width 12.8 % (11.5-14.5); Segmented Neutrophils % 77.2 %
[2018-04-13 11:17] LABS: Alanine Aminotransferase 14 Units/L (7-52); Albumin 4.3 g/dL (3.5-5.7); Albumin/Globulin Ratio 1.7 (1.1-2.2); Alkaline Phosphatase 64 Units/L (34-104); Aspartate Amino Transferase 19 Units/L (13-39); BUN/Creatinine Ratio 11 (6-26); Bilirubin,Total 1.1 mg/dL (0.3-1.0); Blood Urea Nitrogen 14 mg/dL (8-23); Calcium 9.7 mg/dL (8.6-10.3); Carbon Dioxide 27 mEq/L (23-29); Chloride 100 mEq/L (98-107); Globulin 2.6 g/dL (2.4-3.5); Glucose 112 mg/dL (70-105); Magnesium 2.1 mg/dL (1.6-2.6); Osmolality,Calculated 279 (280-300); Potassium 3.8 mEq/L (3.5-5.1); Sodium 134 mEq/L (136-145); Total Protein 6.9 g/dL (6.4-8.9); eGFR For Non-African Americans 55 (> 60)
[2018-04-13 11:18] LABS: Chol/HDL Ratio 4.3 (0-4.9)
--- NOTE | 2018-04-13 14:37 | Neurology Progress Note ---
Date of Encounter: 04/13/18 Time of Encounter: 08:25 Assessment and Plan (1) CVA (cerebral vascular accident) Status: Acute Clinically patient is a stable no evidence of any acute embolic source. He would benefit from short-term rehabilitation suggest continue on antiplatelet therapy other treatment is as per primary team okay to transfer from neurology standpoint Qualifiers: CVA mechanism: unspecified Qualified Code(s): I63.9 - Cerebral infarction, unspecified (2) Memory loss or impairment Status: Acute (3) Altered mental status Status: Acute Qualifiers: Altered mental status type: unspecified Qualified Code(s): R41.82 - Altered mental status, unspecified Objective - Constitutional Vitals: Temp Pulse Resp BP Pulse Ox 97.3 F L 65 16 165/76 93 04/13/18 07:00 04/13/18 07:00 04/13/18 07:00 04/13/18 07:00 04/13/18 07:00 - Neurological Exam Motor Examination: Present: grossly full strength in all extremities Sensation intact: Present: intact Reflex and gait examination: intact Reflexes: Biceps: 2+, Triceps: 2+, Brachioradialis: 2+, Patella: 2+, Achilles: 2+ Mental Status Examination: Present: awake, alert, oriented to person, oriented to place Cranial nerve examination: Present: PERRL, EOMI, no facial asymmetry is present - Stroke Contraindication Rehab Services Not Assessed: Returned to Prior Level of Function Results - Laboratory Findings CBC and BMP: 04/13/18 10:45 04/13/18 10:45 Abnormal lab findings: Abnormal lab results Sodium 134 mEq/L (136-145) L 04/13/18 10:45 Est GFR (Non-Af Amer) 55 (> 60) L 04/13/18 10:45 Glucose 112 mg/dL (70-105) H 04/13/18 10:45 POC Glucose 114 mg/dL (70-99) H 04/12/18 11:39 Calculated Osmolality 279 (280-300) L 04/13/18 10:45 Total Bilirubin 1.1 mg/dL (0.3-1.0) H 04/13/18 10:45 Troponin I 0.04 ng/mL (< 0.04) H* 04/12/18 09:26 Triglycerides 224 mg/dL (< 150) H 04/13/18 10:45 VLDL Cholesterol, Calc 45 mg/dL (< 31) H 04/13/18 10:45 HDL Cholesterol 39 mg/dL (40-59) L 04/13/18 10:45 Urine Glucose (UA) 100 mg/dL (Normal) H 04/12/18 03:21 Urine Blood Trace (Negative) H 04/12/18 03:21 Ur Squamous Epith Cells Moderate per lpf (None-Few) H 04/12/18 03:21 Consult Discharge Plan - Plan Instructions: Aspirin (By mouth), Amlodipine (By mouth), Ischemic Stroke (DC), Chronic Hypertension (DC) Referrals: Martha Marsh DO [Partnered Physician] - 04/20/18 1:45 pm (With Dr. Colón ) Prescriptions: amLODIPine [Norvasc] 5 mg PO DAILY #30 tablet Aspirin Enteric Coated [Aspirin EC] 81 mg PO DAILY #30 tablet.
== END 2018-04-13 11:51 | disposition home health service (06) ==
LOC: EMEROOARM 02:13 → 3BNU 02:13 → SUATTDRO 04:17 → 3BNU 04:45
PROVIDERS: ADMIT Pediatrics; ATTEND Family Medicine

== ENCOUNTER 2018-04-26 19:05 | Inpatient (IN) ==
[2018-04-26 19:53] LABS: INR 1.1; Prothrombin Time 12.1 Seconds (9.4-12.1)
[2018-04-26 19:56] LABS: Activated Partial Thrombo Time 28.6 Seconds (26.0-36.0)
--- NOTE | 2018-04-26 20:09 | Emergency Department Note ---
Disposition Clinical Impression: TIA (transient ischemic attack), Acute hyponatremia, Hypokalemia, Acute kidney injury Altered mental status Qualifiers: Altered mental status type: unspecified Qualified Code(s): R41.82 - Altered mental status, unspecified Disposition: Admitted As Inpatient Condition: Fair General Adult HPI - General Chief complaint: ED Altered Mental Status Stated complaint: Possible TIA Time Seen by Provider: 04/26/18 19:13 Source: EMS Limitations: no limitations Nursing Notes Reviewed: Yes Vital Signs Reviewed: Yes - History of Present Illness HPI Narrative: Patient is a 77-year-old male with history of CVA who was recently admitted to the hospital and discharged home presenting to the emergency department with complaints of weakness. Upon arrival network/telecom engineer noted left-sided upper and lower extremity weakness which has since resolved. The patient is a poor historian and is oriented only to person and place. He states he has had many many falls at home and may have hit his head but denies any loss of consciousness. He denies any current pain including pain in his chest, head or abdomen. He does not feel short of breath. Full history is limited by the patient's mental status. Pain Scale: 0 - Related Data Home Medications Medication Instructions Recorded Confirmed Clopidogrel [Plavix] 75 mg PO DAILY 04/12/18 04/12/18 Losartan Potassium [Cozaar] 100 mg PO DAILY 04/12/18 04/12/18 hydroCHLOROthiazide 25 mg PO DAILY 04/12/18 04/12/18 [Hydrochlorothiazide] Previous Rx's Medication Instructions Recorded Aspirin Enteric Coated [Aspirin EC] 81 mg PO DAILY #30 tablet. 04/13/18 Rosuvastatin [Crestor] 40 mg PO HS #0 04/13/18 amLODIPine [Norvasc] 5 mg PO DAILY #30 tablet 04/13/18 Allergies Allergy/AdvReac Type Severity Reaction Status Date / Time No Known Allergies Allergy Verified 04/12/18 03:07 All systems ED: reviewed and negative except as stated. Review of Systems: As Per HPI Limitations: ROS unobtainable due to patients medical condition Constitutional: Reports: weakness, other (Frequent falls) Cardiovascular: Denies: chest pain, palpitations, dyspnea on exertion Respiratory: Denies: cough, dyspnea, wheezes, hemoptysis, stridor Gastrointestinal: Denies: abdominal pain, nausea, vomiting, diarrhea Genitourinary: Denies: urgency, dysuria Musculoskeletal: Denies: back pain, neck pain, joint swelling Integumentary: Denies: rash, abrasion, lesions Neurological: Reports: weakness, confusion. Denies: headache, numbness, paresthesias Psychiatric: Denies: anxiety, depression Endocrine: Denies: fatigue Hematological/Lymphatic: Denies: easy bleeding, easy bruising Past Medical History - Past Medical History Attestation: Yes The following information was validated with the patient. Source: unable to obtain, old records reviewed Medical history: Reports: hypertension, myocardial infarction, TIA Psychiatric history: Reports: no psych history - Social History Smoking Status: Former smoker Smokeless Tobacco Status: No Alcohol use: Reports: none Drug use: Reports: none Physical Exam - General Limitations: no limitations, altered mental status General appearance: alert, in no apparent distress - Head Head exam: atraumatic, normocephalic - Eye Eye exam: Present: normal appearance, PERRL, EOMI - ENT ENT exam: normal exam, normal oropharynx, mucous membranes moist - Neck Neck exam: Present: normal inspection, other (in cervical collar) - Chest Chest inspection: Present: normal inspection, symmetric chest wall rise. Absent: tenderness, rash - Respiratory Respiratory exam: Present: normal lung sounds bilaterally. Absent: respiratory distress, wheezes, stridor, accessory muscle use - Cardiovascular Cardiovascular exam: Present: regular rate, normal rhythm, normal heart sounds - Abdominal Exam Abdominal exam: Present: soft, Non-Tender, normal bowel sounds. Absent: distention, guarding, rebound, rigidity - Male exam: Present: normal inspection, normal testicular lie. Absent: penile swelling - Extremities Exam Extremities exam: Present: normal inspection. Absent: pedal edema - Neurological Exam Neurological exam: Present: alert - Expanded Neurological Exam Patient oriented to: Present: person, place. Absent: time Speech: Present: fluid speech Cranial nerves: EOM function (II, III, IV, ): Normal, facial sensation (V): No rmal, facial palsy (VII): Normal, tongue deviation (XII): Normal Cerebellar function: finger to nose: Normal Motor strength - LUE: 5/5 Motor strength - RUE: 5/5 Motor strength - LLE: 5/5 Motor strength - RLE: 5/5 Upper motor neuron exam: panchito neglect: Absent bilaterally, pronator drift: Absent bilaterally, sensory extinction: Absent bilaterally Sensory exam upper extremity: light touch: Normal Sensory exam lower extremity: light touch: Normal Coma Scale Eye Opening: Spontaneous Coma Scale Motor Response: Obeys Commands Coma Scale Verbal Response: Confused Coma Scale Total: 14 - Psychiatric Psychiatric exam: Present: normal affect, normal mood - Skin Skin exam: Present: warm, dry, intact, other (healing abrasion to left knee) Course Vital Signs Temperature 97.6 F 04/26/18 19:27 Pulse Rate 69 04/26/18 19:27 Respiratory Rate 20 04/26/18 19:27 Blood Pressure 132/79 04/26/18 19:27 O2 Sat by Pulse Oximetry 95 04/26/18 19:27 Temperature 97.6 F 04/26/18 19:27 Pulse Rate 70 04/26/18 23:03 Respiratory Rate 16 04/26/18 23:03 Blood Pressure 98/63 04/26/18 23:03 O2 Sat by Pulse Oximetry 90 04/26/18 23:03 Oxygen Delivery Oxygen Delivery Room Air Medical Decision Making - MDM Narrative Medical decision making narrative: 77-year-old male recently discharge on 04/13/18 status post CVA presents status post fall. The patient was discharged on Plavix and aspirin. On presentation he is oriented only to person and place but not time. He has no focal n eurological deficits. Repeat evaluation including CT head and neck revealed possible acute posterior infarct versus encephalopathic changes but no evidence of hemorrhage. Cervical collar removed. BMP did show significant hyponatremia to 116. Patient does appear dehydrated on exam therefore likely a hypovolemic hyponatremia. Initiated fluid management of 125 mL normal saline per hour. Discussed the case with airplane pilot photogrammetry on-call, Dr. Ragsdale who recommends rechecking BMP in 2 hours and if greater than 122 half his maintenance fluids. Does have hypokalemia to 3.2, 40 mEq potassium given. Also noted leukocytosis of 19.2 but there is no obvious source of infection as his urine is clear, he does not have a fever, has no focal consolidation on auscultation and his belly is soft and nontender. Discussed the case with hospitalist on-call, Dr. Sethi who because the patient for admission. Patient agrees with and understands course of treatment plan including plan for admission. All qu estions answered. - Medical Records Medical records reviewed: Yes I reviewed the patient's medical records. - Lab Data Lab results reviewed: Yes I reviewed the patient's lab results. Result diagrams: 04/26/18 21:05 04/26/18 22:23 Lab Results 04/26/18 04/26/18 04/26/18 Range/Units 19:34 19:34 19:34 WBC (4.3-11.1) K/mcL RBC (4.19-5.50) M/mcL Hgb (12.9-16.9) g/dL Hct (37.5-50.1) % MCV (83.0-100.0) fL MCH (28.0-33.3) pg MCHC (31.6-35.5) g/dL RDW (11.5-14.5) % Plt Count (140-400) K/mcL MPV (9.4-12.4) fL Immature Gran % (0-4) % Seg Neutrophils % % Lymphocytes % % Monocytes % % Eosinophils % % Basophils % % Neutrophils # (1.6-8.9) K/mcL Lymphocytes # (0.6-4.6) K/mcL Monocytes # (0.0-1.3) K/mcL Eosinophils # (0.0-0.6) K/mcL Basophils # (0.0-0.2) K/mcL PT 12.1 (9.4-12.1) Seconds INR 1.1 APTT 28.6 (26.0-36.0) Seconds Sodium 116 L* (136-145) mEq/L Potassium 3.3 L (3.5-5.1) mEq/L Chloride 80 L (98-107) mEq/L Carbon Dioxide 22 L (23-29) mEq/L BUN 23 (8-23) mg/dL Creatinine 1.88 H (0.70-1.30) mg/dL Est GFR ( Amer) 42 L (> 60) Est GFR (Non-Af Amer) 35 L (> 60) BUN/Creatinine Ratio 12 (6-26) Glucose 142 H (70-105) mg/dL Calculated Osmolality 248 L (280-300) Calcium 9.9 (8.6-10.3) mg/dL Magnesium 1.9 (1.6-2.6) mg/dL Total Bilirubin 2.4 H (0.3-1.0) mg/dL Direct Bilirubin 0.7 H (0.0-0.2) mg/dL Indirect Bilirubin 1.7 H (0.0-1.2) mg/dL AST 26 (13-39) Units/L ALT 19 (7-52) Units/L Alkaline Phosphatase 82 (34-104) Units/L Ammonia 46 (16-53) mcmol/L Creatine Kinase 519 H (30-223) Units/L Troponin I < 0.03 (< 0.04) ng/mL Serum Total Protein 6.6 (6.4-8.9) g/dL Albumin 4.2 (3.5-5.7) g/dL Globulin 2.4 (2.4-3.5) g/dL Albumin/Globulin Ratio 1.8 (1.1-2.2) Urine Color (Yellow) Urine Clarity (Clear) Urine pH (5.0-8.0) pH Units Ur Specific [place] (1.010-1.025) Urine Protein (Neg-Trace) mg/dL Urine Glucose (UA) (Normal) mg/dL Urine Ketones (Negative) mg/dL Urine Blood (Negative) Urine Nitrite (Negative) Urine Bilirubin (Negative) Urine Urobilinogen (Normal) mg/dL Ur Leukocyte Esterase (Negative) Urine Microscopic RBC (0-3) per hpf Urine Microscopic WBC (0-3) per hpf Ur Squamous Epith Cells (None-Few) per lpf Urine Bacteria (None-Few) per hpf Hyaline Casts (None-Few) per lpf Ur Culture Indicated? (NO) Urine Opiates Screen (Ueliro=646) ng/mL Ur Barbiturates Screen (Zezecl=907) ng/mL Ur Phencyclidine Scrn (Cutoff=25) ng/mL Ur Amphetamines Screen (Reuptv=4519) ng/mL U Benzodiazepines Scrn (Rgtzjy=477) ng/mL Urine Cocaine Screen (Cutoff= 300) ng/mL U Marijuana (THC) Screen (Cutoff = 50) ng/mL Ur Drug Screen Interp Ethyl Alcohol < 10 (Less than 10) mg/dL Specimen Rejected 04/26/18 04/26/18 04/26/18 Range/Units 19:34 21:05 21:36 WBC 19.2 H (4.3-11.1) K/mcL RBC 4.73 (4.19-5.50) M/mcL Hgb 15.4 (12.9-16.9) g/dL Hct 39.9 (37.5-50.1) % MCV 84.4 D (83.0-100.0) fL MCH 32.6 (28.0-33.3) pg MCHC 38.6 H (31.6-35.5) g/dL RDW 12.2 (11.5-14.5) % Plt Count 212 (140-400) K/mcL MPV 9.8 (9.4-12.4) fL Immature Gran % 0.5 (0-4) % Seg Neutrophils % 87.8 % Lymphocytes % 3.6 % Monocytes % 7.8 % Eosinophils % 0.1 % Basophils % 0.2 % Neutrophils # 16.9 H (1.6-8.9) K/mcL Lymphocytes # 0.7 (0.6-4.6) K/mcL Monocytes # 1.5 H (0.0-1.3) K/mcL Eosinophils # 0.0 (0.0-0.6) K/mcL Basophils # 0.0 (0.0-0.2) K/mcL PT (9.4-12.1) Seconds INR APTT (26.0-36.0) Seconds Sodium (136-145) mEq/L Potassium (3.5-5.1) mEq/L Chloride (98-107) mEq/L Carbon Dioxide (23-29) mEq/L BUN (8-23) mg/dL Creatinine (0.70-1.30) mg/dL Est GFR ( Amer) (> 60) Est GFR (Non-Af Amer) (> 60) BUN/Creatinine Ratio (6-26) Glucose (70-105) mg/dL Calculated Osmolality (280-300) Calcium (8.6-10.3) mg/dL Magnesium (1.6-2.6) mg/dL Total Bilirubin (0.3-1.0) mg/dL Direct Bilirubin (0.0-0.2) mg/dL Indirect Bilirubin (0.0-1.2) mg/dL AST (13-39) Units/L ALT (7-52) Units/L Alkaline Phosphatase (34-104) Units/L Ammonia (16-53) mcmol/L Creatine Kinase (30-223) Units/L Troponin I (< 0.04) ng/mL Serum Total Protein (6.4-8.9) g/dL Albumin (3.5-5.7) g/dL Globulin (2.4-3.5) g/dL Albumin/Globulin Ratio (1.1-2.2) Urine Color Dark Yellow (Yellow) Urine Clarity Cloudy A (Clear) Urine pH 5.5 (5.0-8.0) pH Units Ur Specific [place] 1.013 (1.010-1.025) Urine Protein Trace (Neg-Trace) mg/dL Urine Glucose (UA) Normal (Normal) mg/dL Urine Ketones Trace H (Negative) mg/dL Urine Blood Negative (Negative) Urine Nitrite Negative (Negative) Urine Bilirubin Small H (Negative) Urine Urobilinogen Normal (Normal) mg/dL Ur Leukocyte Esterase Negative (Negative) Urine Microscopic RBC 0-3 (0-3) per hpf Urine Microscopic WBC 0-3 (0-3) per hpf Ur Squamous Epith Cells Many H (None-Few) per lpf Urine Bacteria None Seen (None-Few) per hpf Hyaline Casts Many H (None-Few) per lpf Ur Culture Indicated? NO (NO) Urine Opiates Screen (Zcuwzl=575) ng/mL Ur Barbiturates Screen (Abmgkc=468) ng/mL Ur Phencyclidine Scrn (Cutoff=25) ng/mL Ur Amphetamines Screen (Kbjunb=2853) ng/mL U Benzodiazepines Scrn (Afnsnq=330) ng/mL Urine Cocaine Screen (Cutoff= 300) ng/mL U Marijuana (THC) Screen (Cutoff = 50) ng/mL Ur Drug Screen Interp Ethyl Alcohol (Less than 10) mg/dL Specimen Rejected MCV Delta /18/18 Range/Units 21:36 WBC (4.3-11.1) K/mcL RBC (4.19-5.50) M/mcL Hgb (12.9-16.9) g/dL Hct (37.5-50.1) % MCV (83.0-100.0) fL MCH (28.0-33.3) pg MCHC (31.6-35.5) g/dL RDW (11.5-14.5) % Plt Count (140-400) K/mcL MPV (9.4-12.4) fL Immature Gran % (0-4) % Seg Neutrophils % % Lymphocytes % % Monocytes % % Eosinophils % % Basophils % % Neutrophils # (1.6-8.9) K/mcL Lymphocytes # (0.6-4.6) K/mcL Monocytes # (0.0-1.3) K/mcL Eosinophils # (0.0-0.6) K/mcL Basophils # (0.0-0.2) K/mcL PT (9.4-12.1) Seconds INR APTT (26.0-36.0) Seconds Sodium (136-145) mEq/L Potassium (3.5-5.1) mEq/L Chloride (98-107) mEq/L Carbon Dioxide (23-29) mEq/L BUN (8-23) mg/dL Creatinine (0.70-1.30) mg/dL Est GFR ( Amer) (> 60) Est GFR (Non-Af Amer) (> 60) BUN/Creatinine Ratio (6-26) Glucose (70-105) mg/dL Calculated Osmolality (280-300) Calcium (8.6-10.3) mg/dL Magnesium (1.6-2.6) mg/dL Total Bilirubin (0.3-1.0) mg/dL Direct Bilirubin (0.0-0.2) mg/dL Indirect Bilirubin (0.0-1.2) mg/dL AST (13-39) Units/L ALT (7-52) Units/L Alkaline Phosphatase (34-104) Units/L Ammonia (16-53) mcmol/L Creatine Kinase (30-223) Units/L Troponin I (< 0.04) ng/mL Serum Total Protein (6.4-8.9) g/dL Albumin (3.5-5.7) g/dL Globulin (2.4-3.5) g/dL Albumin/Globulin Ratio (1.1-2.2) Urine Color (Yellow) Urine Clarity (Clear) Urine pH (5.0-8.0) pH Units Ur Specific [place] (1.010-1.025) Urine Protein (Neg-Trace) mg/dL Urine Glucose (UA) (Normal) mg/dL Urine Ketones (Negative) mg/dL Urine Blood (Negative) Urine Nitrite (Negative) Urine Bilirubin (Negative) Urine Urobilinogen (Normal) mg/dL Ur Leukocyte Esterase (Negative) Urine Microscopic RBC (0-3) per hpf Urine Microscopic WBC (0-3) per hpf Ur Squamous Epith Cells (None-Few) per lpf Urine Bacteria (None-Few) per hpf Hyaline Casts (None-Few) per lpf Ur Culture Indicated? (NO) Urine Opiates Screen Negative (Aeksqq=085) ng/mL Ur Barbiturates Screen Negative (Vmmdso=171) ng/mL Ur Phencyclidine Scrn Negative (Cutoff=25) ng/mL Ur Amphetamines Screen Negative (Syryvb=8003) ng/mL U Benzodiazepines Scrn Negative (Plxzkv=889) ng/mL Urine Cocaine Screen Negative (Cutoff= 300) ng/mL U Marijuana (THC) Screen Negative (Cutoff = 50) ng/mL Ur Drug Screen Interp See Below Ethyl Alcohol (Less than 10) mg/dL Specimen Rejected - Radiology Data Radiology results reviewed: Yes I reviewed the patient's radiology results. Chest X-Ray 04/26/18 19:14 IMPRESSION: No acute cardiopulmonary findings. D/ / Debbie Araya MD / Debbie Araya MD Interpreting Provider: Debbie Araya MD Cervical Spine CT 04/26/18 19:15 IMPRESSION: No acute abnormality of the cervical spine. D/ / Blue Madrid MD / Blue Madrid MD Interpreting Provider: Blue Madrid MD Head CT 04/26/18 19:15 IMPRESSION: 1. Question of loss of the fitzgerald-white matter differentiation in the occipital lobes, consider acute infarct or posterior reversible encephalopathy syndrome. Consider MRI for further evaluation. 2. Nonspecific white matter disease, likely due to chronic small vessel ischemia. D/ / 04/26/2018 21:44:39 Ruben Beavers MD / kelly Interpreting Provider: Ruben Beavers MD Attestation Statement - Attestation Attestation: I, Tyler Noriega, examined this patient and my medical decision-making was reviewed with the PAPER WINDER/PA/Advanced Practice Nurse/Resident Physician. I agree with the documented findings, disposition and treatment plan as described except to the extent set forth below. 77-year-old male presents emergency Department with concerns of altered mental s tatus and possible CVA versus TIA. EMS initially found left upper extremity and left lower extremity weakness on their evaluation. They became stuck in the driveway to the patient's house and could not get out. A second EMS crew arrived, on reevaluation he did not have focal neurologic deficits. My reevaluation emergency department he did not have focal neurologic deficits. CT of the head did not show evidence of acute fracture or intracranial hemorrhage. Family had reported to EMS that the patient was moderately more confused than his baseline. On laboratory evaluation he had hyponatremia. Patient had a mild leukocytosis. He denies ever urinary tract infection. Chest x-ray did not show evidence of acute infiltrate. Patient was given normal saline in the emergency department as he looked to have a hypovolemic hyponatremia. Nephrology was consult at regarding the case. Patient will be admitted to the hospitalist for further care and evaluation.
[2018-04-26 20:12] LABS: Alanine Aminotransferase 19 Units/L (7-52); Albumin 4.2 g/dL (3.5-5.7); Albumin/Globulin Ratio 1.8 (1.1-2.2); Alkaline Phosphatase 82 Units/L (34-104); Aspartate Amino Transferase 26 Units/L (13-39); BUN/Creatinine Ratio 12 (6-26); Bilirubin,Direct 0.7 mg/dL (0.0-0.2); Bilirubin,Indirect 1.7 mg/dL (0.0-1.2); Bilirubin,Total 2.4 mg/dL (0.3-1.0); Blood Urea Nitrogen 23 mg/dL (8-23); Calcium 9.9 mg/dL (8.6-10.3); Carbon Dioxide 22 mEq/L (23-29); Chloride 80 mEq/L (98-107); Creatine Kinase 519 Units/L (30-223); Ethanol < 10 mg/dL (Less than 10); Globulin 2.4 g/dL (2.4-3.5); Glucose 142 mg/dL (70-105); Osmolality,Calculated 248 (280-300); Potassium 3.3 mEq/L (3.5-5.1); Sodium 116 mEq/L (136-145); Total Protein 6.6 g/dL (6.4-8.9); Troponin I < 0.03 ng/mL (< 0.04); eGFR For Non-African Americans 35 (> 60)
[2018-04-26 20:32] LABS: Magnesium 1.9 mg/dL (1.6-2.6)
[2018-04-26] MEDS: 0.9 % Sodium Chloride 1,000 ML IVC SCH ×2 (21:03→23:38)
[2018-04-26 21:13] LABS: Basophils % 0.2 %; Eosinophils % 0.1 %; Hematocrit 39.9 % (37.5-50.1); Immature Granulocytes % 0.5 % (0-4); Lymphocytes # 0.7 K/mcL (0.6-4.6); Lymphocytes % 3.6 %; Mean Corpuscular Volume 84.4 fL (83.0-100.0); Mean Platelet Volume 9.8 fL (9.4-12.4); Monocytes # 1.5 K/mcL (0.0-1.3); Monocytes % 7.8 %; Neutrophils # 16.9 K/mcL (1.6-8.9); Platelet Count 212 K/mcL (140-400); Red Blood Count 4.73 M/mcL (4.19-5.50); Red Cell Distribution Width 12.2 % (11.5-14.5); Segmented Neutrophils % 87.8 %
[2018-04-26 21:51] LABS: Bilirubin,Urine Small (Negative); Blood,Urine Negative (Negative); Clarity,Urine Cloudy (Clear); Color,Urine Dark Yellow (Yellow); Glucose,Urine (UA) Normal (Normal); Ketones,Urine Trace mg/dL (Negative); Leukocyte Esterase,Urine Negative (Negative); Nitrite,Urine Negative (Negative); PH,Urine 5.5 pH Units (5.0-8.0); Protein,Urine Trace mg/dL (Neg-Trace); Specific Gravity,Urine 1.013 (1.010-1.025); Urobilinogen,Urine Normal (Normal)
[2018-04-26 21:54] LABS: Bacteria,Urine None Seen per hpf (None-Few); RBC,Urine 0-3 per hpf (0-3); Squamous Epithelial Cell,Urine Many per lpf (None-Few); WBC,Urine 0-3 per hpf (0-3)
[2018-04-26 21:54] LABS: Mean Corpuscular HGB Conc 38.6 g/dL (31.6-35.5); Mean Corpuscular Hemoglobin 32.6 pg (28.0-33.3)
[2018-04-26 21:56] LABS: Hemoglobin 15.4 g/dL (12.9-16.9)
[2018-04-26 21:57] LABS: Amphetamine Screen,Urine Negative ng/mL (Cutoff=1000); Barbiturate Screen,Urine Negative ng/mL (Cutoff=200); Benzodiazepines Screen,Urine Negative ng/mL (Cutoff=200); Cannabinoid Screen,Urine Negative ng/mL (Cutoff = 50); Cocaine Screen,Urine Negative ng/mL (Cutoff= 300); Opiate Screen,Urine Negative ng/mL (Cutoff=300); Phencyclidine Screen,Urine Negative ng/mL (Cutoff=25)
[2018-04-26 22:40] LABS: Hyaline Casts,Urine Many per lpf (None-Few)
[2018-04-26 23:00] LABS: Calcium 9.3 mg/dL (8.6-10.3); Potassium 3.2 mEq/L (3.5-5.1)
[2018-04-27] MEDS: 0.9 % Sodium Chloride 1,000 ML IVC SCH ×2 (01:59→15:51)
[2018-04-27 04:08] LABS: Prothrombin Time 11.7 Seconds (9.4-12.1)
[2018-04-27 04:21] LABS: Albumin 3.8 g/dL (3.5-5.7); Albumin/Globulin Ratio 2.1 (1.1-2.2); Bilirubin,Total 2.1 mg/dL (0.3-1.0); Globulin 1.8 g/dL (2.4-3.5); Potassium 3.1 mEq/L (3.5-5.1); Total Protein 5.6 g/dL (6.4-8.9)
--- NOTE | 2018-04-27 04:22 | Internal Med History&Physical ---
Date of Encounter: 04/27/18 Time of Encounter: 04:15 Internal Medicine - H&P: HPI Chief complaint: TIA/Hyponatremia History of present illness: Mr. Adamson is a 77 year old male with past medical history of hypertension, [place], and recent hospitalization for CVA who presents to the ED due to complaints of weakness. Per EMS report, patient was noted to have a left sided upper and lower extremity weakness which resolved by the time the patient arrived to the ED. Patient is a poor historian and most of the history was obtained from medical records. Assessment in the ED noted no focal neurological deficits. CT scan of the head and neck revealed possible acute posterior infarct versus encephalopathic changes but no evidence of hemorrhage. Labs were notable for a significant hyponatremia 116. Nephrology was consulted and fluids were begun at 125 mL's per hour. Patient was also noted to have an elevated white blood cell count without any evidence of an underlying infection. During my assessment, patient had no focal neurological deficits. He was alert and oriented to person only. Past Med Surg Social Fam HX - Past Medical History Medical history: hypertension, myocardial infarction, TIA Psychiatric history: no psych history - Past Surgical History Additional surgical history: 4 stents - Social History Smoking Status: Former smoker Smokeless Tobacco Status: No Alcohol use: none Drug use: none Internal Medicine - H&P: Meds Clopidogrel [Plavix] 75 mg PO DAILY 04/12/18 [History] Losartan Potassium [Cozaar] 100 mg PO DAILY 04/12/18 [History] hydroCHLOROthiazide [Hydrochlorothiazide] 25 mg PO DAILY 04/12/18 [History] Aspirin Enteric Coated [Aspirin EC] 81 mg PO DAILY #30 tablet.dr 04/13/18 [Rx] Rosuvastatin [Crestor] 40 mg PO HS #0 04/13/18 [Rx] amLODIPine [Norvasc] 5 mg PO DAILY #30 tablet 04/13/18 [Rx] Allergy/AdvReac Type Severity Reaction Status Date / Time No Known Allergies Allergy Verified 04/12/18 03:07 All Systems PM: A 10-system review of systems was performed and is negative for pertinent findings except as documented above in the HPI. - Constitutional Constitutional: no chills, no fever(s), no night sweats - EENT Eyes: no change in vision, no discharge, no pain, no photophobia Ears: no ear discharge, no ear pain, no tinnitus Nose, mouth and throat: no dysphagia, no nasal discharge, no neck pain, no sore throat - Cardiovascular Cardiovascular ROS IM: no chest pain, no diaphoresis, no dyspnea, no lightheade dness, no palpitations, no syncope - Respiratory Respiratory: no cough, no dyspnea, no wheezing, no excessive phlegm production - Gastrointestinal Gastrointestinal: no abdominal pain, no diarrhea, no hematemesis, no hemato chezia, no melena, no nausea, no vomiting - Musculoskeletal Musculoskeletal ROS IM: no numbness, no tingling - Integumentary Integumentary IM: no rash, no unusual bruising - Neurological Neurological ROS: no confusion, no convulsions, no focal weakness, no numbness, no tingling, no tremor(s) - Hematologic/Lymphatic Hematologic/Lymphatic: no easy bruising - Constitutional Vitals: Temp Pulse Resp BP Pulse Ox 98.6 F 65 18 106/60 92 04/27/18 04:04 04/27/18 04:04 04/27/18 04:04 04/27/18 04:04 04/27/18 04:04 Exam: General: Alert and oriented 1 lying in bed in no acute distress Skin:Normal color, no rash, no lesions. HEENT:EOM, pupils equal, round and reactive. Cardiovascular:Normal S1 & S2, no rubs, murmurs or gallops. No JVD. Pulse regular. Lungs:Normal breath sounds, no wheezes or crackles. Abdomen:Soft, non-tender, no rigidity. Extremities:No deformity, no edema or tenderness, no joint swelling or clubbing. Neurological: Cranial nerves II through XII intact; no focal neurological deficits; muscle strength in the upper and lower extremities 5 out of 5 bilaterally. Pulses:Carotid and radial pulses normal +2. Rest of the physical exam is non contributory Internal Med - H&P Results - Labs CBC & Chem 7: 04/26/18 21:05 04/27/18 03:17 Labs: Short CBC 04/26/18 Range/Units 21:05 WBC 19.2 H (4.3-11.1) K/mcL Hgb 15.4 (12.9-16.9) g/dL Hct 39.9 (37.5-50.1) % Plt Count 212 (140-400) K/mcL Neutrophils # 16.9 H (1.6-8.9) K/mcL BMP 04/26/18 04/26/18 19:34 22:23 Sodium 116 L* 113 L* Potassium 3.3 L 3.2 L Chloride 80 L 81 L Carbon Dioxide 22 L 21 L BUN 23 24 H Creatinine 1.88 H 1.76 H Glucose 142 H 114 H Calcium 9.9 9.3 Cardiac Enzymes 04/26/18 Range/Units 19:34 Troponin I < 0.03 (< 0.04) ng/mL Liver Function 04/26/18 Range/Units 19:34 Total Bilirubin 2.4 H (0.3-1.0) mg/dL Direct Bilirubin 0.7 H (0.0-0.2) mg/dL AST 26 (13-39) Units/L ALT 19 (7-52) Units/L Alkaline Phosphatase 82 (34-104) Units/L Albumin 4.2 (3.5-5.7) g/dL Urine 04/26/18 Range/Units 21:36 Urine Color Dark Yellow (Yellow) Urine Clarity Cloudy A (Clear) Urine pH 5.5 (5.0-8.0) pH Units Ur Specific [place] 1.013 (1.010-1.025) Urine Protein Trace (Neg-Trace) mg/dL Urine Glucose (UA) Normal (Normal) mg/dL - Impressions ITS Impressions Chest X-Ray 04/26/18 19:14 IMPRESSION: No acute cardiopulmonary findings. D/ / Debbie Araya MD / Debbie Araya MD Interpreting Provider: Debbie Araya MD Cervical Spine CT 04/26/18 19:15 IMPRESSION: No acute abnormality of the cervical spine. D/ / Blue Madrid MD / Blue Madrid MD Interpreting Provider: Blue Madrid MD Head CT 04/26/18 19:15 IMPRESSION: 1. Question of loss of the fitzgerald-white matter differentiation in the occipital lobes, consider acute infarct or posterior reversible encephalopathy syndrome. Consider MRI for further evaluation. 2. Nonspecific white matter disease, likely due to chronic small vessel ischemia. D/ / 04/26/2018 21:44:39 Ruben Beavers MD / kelly Interpreting Provider: Ruben Beavers MD - Assessment and plan (1) TIA (transient ischemic attack) Current Visit: Yes Status: Acute Assessment and plan: Patient initially presented with reported left-sided upper and lower extremity weakness which is seems to have resolved prior to arrival. Patient supposedly is on aspirin and Plavix. Initial CT scan of the head showed questionable loss of the great white matter differentiation in the occipital lobes, consider acute infarct or posterior reversible encephalopathy syndrome. -Frequent neuro checks -Continue with aspirin and Plavix -MRI of the brain in the morning -Neurology consult (2) Acute hyponatremia Current Visit: Yes Status: Acute Assessment and plan: Patient presents with a sodium of 116. Suspicion for hypovolemic hyponatremia. Case discussed with Dr. Ragsdale who recommended sodium checks every 2 hours and adjusting maintenance fluid of greater than 122. -Repeats basic metabolic panel every 2 hours -Continue with normal saline at 75 mL an hour -Nephrology consult in the morning (3) Hypokalemia Current Visit: Yes Status: Acute Assessment and plan: Mild hypokalemia of 3.2. We will replete (4) DVT prophylaxis Current Visit: No Status: Acute Assessment and plan: Subcutaneous heparin - Time Spent With Patient Total time spent is greater than 50% in coordination of care (as documented) at patient's floor/unit and/or counseling patient:
[2018-04-27 06:07] LABS: Basophils % 0.1 %; Eosinophils % 0.4 %; Hemoglobin 15.4 g/dL (12.9-16.9); Immature Granulocytes % 0.5 % (0-4)
[2018-04-27 06:08] LABS: Eosinophils # 0.1 K/mcL (0.0-0.6); Lymphocytes # 1.2 K/mcL (0.6-4.6); Lymphocytes % 8.4 %; Mean Corpuscular Hemoglobin 33.6 pg (28.0-33.3); Mean Platelet Volume 9.9 fL (9.4-12.4); Monocytes # 1.4 K/mcL (0.0-1.3); Monocytes % 9.8 %; Neutrophils # 11.5 K/mcL (1.6-8.9); Platelet Count 252 K/mcL (140-400); Red Blood Count 4.59 M/mcL (4.19-5.50); Red Cell Distribution Width 12.4 % (11.5-14.5); Segmented Neutrophils % 80.8 %
[2018-04-27 06:24] LABS: Potassium 3.3 mEq/L (3.5-5.1)
[2018-04-27] MEDS: *HR* Heparin 5,000 UNIT/ML VIAL SQ SCH ×3 (06:32→20:26)
--- NOTE | 2018-04-27 06:43 | Event Note ---
Date of Encounter: 04/27/18 Time of Encounter: 05:45 Was contacted by nurse who informed me that the patient had gotten out of bed and fallen and struck his head against the side wall. When I arrived the patient was back in bed in no acute distress lying comfortably. There was no evidence of any trauma. No evidence of any focal neurological changes. Patient however was found to be hypoxemic saturating around 87% on 15 L with a Oxy mask. Patient appeared to be in no acute respiratory distress and was sitting comfortably in bed. Several pulse oximeter devices were placed all of which showed similar readings. Lung examination was clear to auscultation. Patient sent for repeat CT of the head along with CT of the chest without contrast. We will obtain blood gas if oxygenation does not improve to confirm hypoxemia.
[2018-04-27 06:46] LABS: Mean Corpuscular HGB Conc 39.5 g/dL (31.6-35.5)
--- NOTE | 2018-04-27 09:07 | Neurology - Consult Note ---
Addendum entered and electronically signed by Abebe Barroso MD 04/27/18 16:52: Patient seen and examined. I agree with Dr. Fabien Iglesias's history taking, physical examination and assessment and plan outlined below. A separate report was also generated by me. Original Note: Date of Encounter: 04/27/18 Time of Encounter: 09:07 Assessment and Plan (1) TIA (transient ischemic attack) Current Visit: Yes Status: Acute - Patient presented after experiencing left-sided weakness at home - Per EMS, patient had left upper extremity and left lower extremity weakness before arrival - Time patient arrived to the emergency room, symptoms resolved - Patients physical exam demonstrated no focal deficits - Head CT demonstrated the following: Question of loss of the fitzgerald white matter differentiation in the occipital lobes, acute infarct versus posterior reversible encephalopathy syndrome - Nonspecific white matter disease, likely due to chronic small vessel ischemia - Repeat head CT showed no acute hemorrhage or definite evidence for acute ischemia Plan: - Resume patients home aspirin and Plavix - MRI of the head/brain pending - Continue medical management (2) Acute hyponatremia Current Visit: Yes Status: Acute - Patient presented with a low sodium level of 116 - This was discussed with nephrology - Patient is currently on normal saline at 75ml/hour - Management per primary team History of Present Illness HPI: Fransico Adamson is a 77 year old male with a PMH of HTN, SD, and CVA who presented to [facility] ED on 04/26/18 with the chief complaint of weakness. Patient had L sided upper and lower extremity weakness, both of which resolved by the time he arrived to the ED. Vital signs were within normal limits on arrival. Laboratory analysis demonstrated an elevated white count at 19.2, a low potassium at 3.2, elevated creatinine at 1.76, creatinine kinase of 519, hyponatremia with a sodium level of 116. Toxicology was negative. X-ray of the cervical spine showed no acute abnormalities. CT scan of the head demonstrated question of loss of fitzgerald-white matter differentiation and occipital lobes, acute infarct versus posterior reversible encephalopathy. Nonspecific white matter disease, likely due to chronic small vessel ischemia. Fluids were started at 125 mL per hour. Patients physical exam on arrival to the ER was unremarkable; no focal deficits were appreciated. On 04/27/18 at 05:45, Sarah, patient had gotten out of bed and had fallen, striking his head against the side wall. Patient was found to be in no acute distress when evaluated. No evidence of any focal neurologic changes. Repeat head CT was obtained; no evidence of acute hemorrhage or definitive evidence of acute ischemia was appreciated. Patient was seen and examined at bedside. He states that he feels much better than he did before admission. Patient is a poor historian, and does not remember much about the events leading up to his stroke 2 weeks ago. He is accompanied at bedside by family members, who state that after his stroke, patient develops difficulty walking and performing daily tasks with his hands. They report that he now has difficulty using utensils. He initially had weakness on the left side of his body, but this has since resolved. He currently denies headache, weakness, visual disturbances, tremor, numbness, tingling, paresthesias. He has no complaints at this time. Past Med Surg Social Fam HX - Past Medical History Medical history: hypertension, myocardial infarction, TIA Psychiatric history: no psych history - Past Surgical History Additional surgical history: 4 stents - Social History Smoking Status: Former smoker Smokeless Tobacco Status: No Alcohol use: none Drug use: none Medications and Allergies Clopidogrel [Plavix] 75 mg PO DAILY 04/12/18 [History] Losartan Potassium [Cozaar] 100 mg PO DAILY 04/12/18 [History] hydroCHLOROthiazide [Hydrochlorothiazide] 25 mg PO DAILY 04/12/18 [History] Aspirin Enteric Coated [Aspirin EC] 81 mg PO DAILY #30 tablet. 04/13/18 [Rx] Rosuvastatin [Crestor] 40 mg PO HS #0 04/13/18 [Rx] amLODIPine [Norvasc] 5 mg PO DAILY #30 tablet 04/13/18 [Rx] Allergy/AdvReac Type Severity Reaction Status Date / Time No Known Allergies Allergy Verified 04/12/18 03:07 All Systems: The remainder of the systems were reviewed and are negative - Constitutional Constitutional ROS IM: as per HPI, weakness (Patient has weakness from his stroke 2 weeks ago, but this is unchanged), no lethargy - Cardiovascular Cardiovascular ROS IM: as per HPI, no syncope - Musculoskeletal Musculoskeletal ROS IM: as per HPI, abnormal gait, no neck pain, no stiffness, no tingling - Neurological Neurological ROS: as per HPI, abnormal gait, weakness (Unchanged from baseline), no abnormal hearing, no dizziness, no headache(s), no loss of vision, no numbness, no sensory deficit Physical Examination - Vital Signs Vital Signs: Initial Vital Signs Temp Pulse Resp BP Pulse Ox 97.6 F 69 20 132/79 95 04/26/18 19:27 04/26/18 19:27 04/26/18 19:27 04/26/18 19:27 04/26/18 19:27 - Constitutional General appearance: comfortable - Neurologic Sensorimotor examination: intact Motor examination - right side: 4/5: deltoids, biceps, triceps, wrist flexion, wrist extension, natural gas technician, plantarflexion Motor examination - left side: 4/5: deltoids, biceps, triceps, wrist flexion, wrist extension, hip flexors, plantarflexion Detailed sensory examination: intact Reflexes: Brachioradialis: 1+, Achilles: 1+ Mental Status Examination: awake, alert, oriented to person, oriented to place, oriented to time, answers questions appropriately Cranial nerve examination: PERRL, EOMI, visual medina intact Results - Laboratory Findings CBC and BMP: 04/27/18 05:43 04/27/18 10:04 Abnormal lab findings: Abnormal lab results WBC 14.2 K/mcL (4.3-11.1) H 04/27/18 05:43 MCH 33.6 pg (28.0-33.3) H 04/27/18 05:43 MCHC 39.5 g/dL (31.6-35.5) H 04/27/18 05:43 Neutrophils # 11.5 K/mcL (1.6-8.9) H 04/27/18 05:43 Monocytes # 1.4 K/mcL (0.0-1.3) H 04/27/18 05:43 Sodium 116 mEq/L (136-145) L* 04/27/18 05:43 Potassium 3.3 mEq/L (3.5-5.1) L 04/27/18 05:43 Chloride 85 mEq/L (98-107) L 04/27/18 05:43 Carbon Dioxide 21 mEq/L (23-29) L 04/27/18 05:43 Creatinine 1.55 mg/dL (0.70-1.30) H 04/27/18 05:43 Est GFR ( Amer) 53 (> 60) L 04/27/18 05:43 Est GFR (Non-Af Amer) 44 (> 60) L 04/27/18 05:43 Glucose 108 mg/dL (70-105) H 04/27/18 05:43 POC Glucose 103 mg/dL (70-99) H 04/27/18 04:02 Calculated Osmolality 246 (280-300) L 04/27/18 05:43 Total Bilirubin 2.1 mg/dL (0.3-1.0) H 04/27/18 03:17 Direct Bilirubin 0.7 mg/dL (0.0-0.2) H 04/26/18 19:34 Indirect Bilirubin 1.7 mg/dL (0.0-1.2) H 04/26/18 19:34 Creatine Kinase 519 Units/L (30-223) H 04/26/18 19:34 Serum Total Protein 5.6 g/dL (6.4-8.9) L 04/27/18 03:17 Globulin 1.8 g/dL (2.4-3.5) L 04/27/18 03:17 Urine Clarity Cloudy (Clear) A 04/26/18 21:36 Urine Ketones Trace mg/dL (Negative) H 04/26/18 21:36 Urine Bilirubin Small (Negative) H 04/26/18 21:36 Ur Squamous Epith Cells Many per lpf (None-Few) H 04/26/18 21:36 Hyaline Casts Many per lpf (None-Few) H 04/26/18 21:36 Consult Discharge Plan - Plan Referrals: NONE,PCP [Primary Care Provider] -
--- NOTE | 2018-04-27 10:01 | Nephrology Consult Note ---
Date of Encounter: 04/27/18 Time of Encounter: 17:19 Assessment and Plan (1) Acute kidney injury Current Visit: Yes Status: Acute Acute kidney injury likely secondary to volume depletion. Continue with intravenous saline and monitor renal response. Avoid nephrotoxins. (2) CVA (cerebral vascular accident) Current Visit: No Status: Acute Qualifiers: CVA mechanism: unspecified Qualified Code(s): I63.9 - Cerebral infarction, unspecified (3) Encephalopathy acute Current Visit: No Status: Acute Patient with acute encephalopathy. It actually sounds like this encephalopathy is been progressing over the last 2 weeks. It is multifactorial including a re cent transient ischemic attack, and significant hyponatremia. Patient also seems to be dehydrated. Neurology is following. (4) Acute hyponatremia Current Visit: Yes Status: Acute Patient with multifactorial acute hyponatremia. Discontinue hydrochlorothiazide. Continue with free water restriction. Agree with continuing with intravenous saline as his rate of rise seems to be reasonable. Replace electrolytes. Liberalize diet. At this time I do not see the need to give sodium tablets or 3% saline. His serum sodium level seems to be rising appropriately. (5) Hypokalemia Current Visit: Yes Status: Acute Replace as needed. History of Present Illness - Reason for Consult Consult date: 04/27/18 Acute Kidney Injury, hyponatremia - Chief Complaint NINA and hyponatremia - History of Present Illness Mr. Adamson is a 77-year-old gentleman with a history of recent diagnosed transient ischemic attack who presents with increasing confusion and in the emergency room was found to have hyponatremia with a sodium of 116. I spoke wi th the ER physician last night and at that time it seemed to the patient was volume depleted and so sodium chloride was started with close monitoring of his sodium to ensure that his sodium level does not rise rapidly. At the time my evaluation the patient is lying in bed he is confused, but pleasant. There is a sitter in the room along with the patient's daughter and his . The patient was alert although he was not oriented. He would answer questions although the answer would not necessarily be appropriate. His review of systems was unobtainable secondary to his mental status. Apparently the patient has had decreased oral intake over the last 2 weeks. He has not had nausea, vomiting, or diarrhea. Past Med Surg Social Fam HX - Past Medical History Medical history: hypertension, myocardial infarction, TIA Psychiatric history: no psych history - Past Surgical History Additional surgical history: 4 stents - Social History Smoking Status: Former smoker Smokeless Tobacco Status: No Alcohol use: none Drug use: none Medications and Allergies Clopidogrel [Plavix] 75 mg PO DAILY 04/12/18 [History] Losartan Potassium [Cozaar] 100 mg PO DAILY 04/12/18 [History] hydroCHLOROthiazide [Hydrochlorothiazide] 25 mg PO DAILY 04/12/18 [History] Aspirin Enteric Coated [Aspirin EC] 81 mg PO DAILY #30 tablet.dr 04/13/18 [Rx] Rosuvastatin [Crestor] 40 mg PO HS #0 04/13/18 [Rx] amLODIPine [Norvasc] 5 mg PO DAILY #30 tablet 04/13/18 [Rx] Allergy/AdvReac Type Severity Reaction Status Date / Time No Known Allergies Allergy Verified 04/12/18 03:07 Review of Systems ROS unobtainable: due to mental status Exam - Vital Signs Vital signs: Initial Vital Signs Temp Pulse Resp BP Pulse Ox 97.6 F 69 20 132/79 95 04/26/18 19:27 04/26/18 19:27 04/26/18 19:27 04/26/18 19:27 04/26/18 19:27 Vital Signs - Last 8 Hours Temp Pulse Resp BP Pulse Ox 04/27/18 06:54 98.3 F 63 18 103/62 91 04/27/18 04:04 98.6 F 65 18 106/60 92 Intake and Output 04/26/18 04/27/18 04/27/18 23:59 07:59 15:59 Intake Total 800 / 800 240 / 240 Balance 800 / 800 240 / 240 Intake: IV Fluids 800 / 800 0.9 % Sodium Chloride 1,000 ML 800 / 800 @ 125 mls/hr IVC .Q8H [facility] Rx#: [id number] Oral 240 / 240 Other: Meal Breakfast Percent of Meal Consumed 60% Weight 101.06 kg 99.3 kg Blood Glucose* 130 100 Patient Weight 04/27/18 23:59 Weight 99.3 kg - General Appearance General appearance: well-developed, well-nourished, chronically ill, frail EENT: ATNC Neck: supple Respiratory: course breath sounds Cardiology: no edema, regular rate Gastrointestinal: no tenderness Integumentary: warm and dry Neurologic: disoriented Musculoskeletal: no cyanosis Psychiatric: mood/affect appropriate Results - Lab Results 04/27/18 05:43 04/27/18 10:04 Most recent lab results Calcium 9.0 mg/dL (8.6-10.3) 04/27/18 05:43 Magnesium 1.9 mg/dL (1.6-2.6) 04/26/18 19:34 Consult Discharge Plan - Plan Referrals: NONE,PCP [Primary Care Provider] -
[2018-04-27 11:33] LABS: Albumin 3.9 g/dL (3.5-5.7); Calcium 9.1 mg/dL (8.6-10.3); Magnesium 1.9 mg/dL (1.6-2.6); Potassium 3.1 mEq/L (3.5-5.1)
[2018-04-27 11:41] LABS: Thyroid Stimulating Hormone 1.31 mcIU/mL (0.340-5.600)
--- NOTE | 2018-04-27 16:26 | Neurology - Consult Note ---
Date of Encounter: 04/27/18 Time of Encounter: 16:19 Assessment and Plan (1) Altered mental status Current Visit: Yes Status: Acute This patient with multiple medical issues and a recent small left parietal lacunar infarct who developed rather acute onset of altered mental status and frequent falling with a negative MRI of the brain. The patient does have multiple ongoing significant medical issues including severe hyponatremia as well as elevated white count indicating possible infection. It is to be mentioned that the patient does have rather significant cognitive impairment likely being at least moderate degree. However, the patient has not been formally evaluated. Patient currently are experiencing visual hallucinations which may be aggravated by ongoing medical conditions and this certainly could improve after medical conditions are successfully treated. I reviewed CT of cervical spine and I find no evidence of spinal Cannell steno sis. Clinically the patient has no signs suggesting cervical myelopathy or thoracic myelopathy. Patient has his knee reflexes preserved and he does not have typical features peripheral neuropathy. Frequent falling very likely are related to encephalopathy related to medical conditions on top of the multi factorial condition including hearing loss/vestibular dysfunction and dementia. Therefore I would recommend no further testing from neurology perspective. Please continue medical and supportive care. As mentioned above, the patient does have rather significant cognitive impairment likely related to Alzheimer disease, I suspect. This can certainly be closely followed at neurology clinic in the future. The etiology, treatment options and neurological prognosis of such a condition are discussed with the patient, and his daughter and all questions were answered. Approximately 70 minutes were spent on this case, of which more than 50% of the time were spent on direct face to face patient care and the rest for coordination of care and counseling. Qualifiers: Altered mental status type: unspecified Qualified Code(s): R41.82 - Altered mental status, unspecified History of Present Illness Chief complaint: altered mental status, frequent falling HPI: Mr. Adamson is a 77 year old male with PMH significant for CAD, dementia, hyperlipidemia, recent CVA, hypertension, lumbar DDD, who presented to the emergency room with chief complaint of altered mental status and frequent falling. Patient is interviewed in the presence of his and daughter. His daughter provided most detailed information regarding the patient's neurological changes. The patient had a small stroke about 2 weeks ago that was cared here at [facility]. MRI of the brain showed a punctuate lacunar infarct at the left parietal white matter. Per medical records, patient had slight weakness to the right side which subsequently resolved. Since then, kourtney ent has being experiencing frequent falling, balance difficulty as well as intermittent confusion. Apparently, this morning, the patient woke up not talking which was considered by his rather abnormal since usually the patient would wake up in the morning talking laughing and doing some other activities. But this time, the patient woke up he was not talking or active however, no seizure activity or other motor activity were noticed. There was no focal weakness identified. Prior to the stroke 2 weeks ago, patient was rather functioning and also he was able to drive although his daughter agrees that the patient does have evidence of dementia that has been going on since the last one year that has been gradually getting worse. Although the patient is still able to drive his daughter does not think he should. The daughter relates that she sees a quite significant change since the last stroke occurred 2 weeks ago and prior. The patient also developed what appeared to be visual hallucinations in the last few days. Patient mental status remains fluctuating since the admission. The patient also has significant hearing problem however currently he reports no significant discomforts. No headaches no neutral rigidity. MRI of the brain was completed and showed no acute intracranial abnormality. Past Med Surg Social Fam HX - Past Medical History Medical history: hypertension, myocardial infarction, TIA Psychiatric history: no psych history - Past Surgical History Additional surgical history: 4 stents - Social History Smoking Status: Former smoker Smokeless Tobacco Status: No Alcohol use: none Drug use: none Medications and Allergies Clopidogrel [Plavix] 75 mg PO DAILY 04/12/18 [History] Losartan Potassium [Cozaar] 100 mg PO DAILY 04/12/18 [History] hydroCHLOROthiazide [Hydrochlorothiazide] 25 mg PO DAILY 04/12/18 [History] Aspirin Enteric Coated [Aspirin EC] 81 mg PO DAILY #30 tablet. 04/13/18 [Rx] Rosuvastatin [Crestor] 40 mg PO HS #0 04/13/18 [Rx] amLODIPine [Norvasc] 5 mg PO DAILY #30 tablet 04/13/18 [Rx] Allergy/AdvReac Type Severity Reaction Status Date / Time No Known Allergies Allergy Verified 04/12/18 03:07 All Systems: The remainder of the systems were reviewed and are negative Physical Examination - Vital Signs Vital Signs: Initial Vital Signs Temp Pulse Resp BP Pulse Ox 97.6 F 69 20 132/79 95 04/26/18 19:27 04/26/18 19:27 04/26/18 19:27 04/26/18 19:27 04/26/18 19:27 - Constitutional General appearance: comfortable - Neurologic Sensorimotor examination: intact (Grossly intact) Detailed motor examination: grossly full strength in all extremities Motor examination - right side: 55: deltoids, biceps, triceps, wrist flexion, wrist extension, technical marketing engineer, hip flexors, tibialis Anterior, quadriceps, toe extension (EHL), plantarflexion Motor examination - left side: 55: deltoids, biceps, triceps, wrist flexion, wrist extension, hip flexors, technical marketing engineer, quadriceps, tibialis Anterior, toe extension (EHL), plantarflexion Detailed sensory examination: intact (grossly intact) Posture: other (None) Reflex and gait examination: other (Gait not assessed) Reflexes: Biceps: 2+, Triceps: 2+, Brachioradialis: 2+, Patella: 2+, Achilles: 2+ Mental Status Examination: awake, alert, oriented to person (Unable to recognize and daughter, called both them 'Cate" who was his sister's name. Patient is hard of hearing. Assessment of mental function difficult), follows commands appropriately, opens eyes to voice, opens eyes to noxious stimulation, makes eye contact, follows simple commands (Hard of hearing, once understood he follows command), inattentive, impaired memory, impaired cognition, cognitive impairment Cranial nerve examination: PERRL, EOMI (difficult to assess. ), visual medina intact (Unable to assess), corneal reflexes brisk symmetrically, sensory to face intact, mastication intact, no facial asymmetry is present, no dysarthria, hearing is intact symmetrically, soft palate elevates bilaterally upon phonation, gag reflex intact, flexes SCM and trapezius muscles symmetrically with full power, tongue protrudes midline, no atrophy or facial fasiculations present Results - Laboratory Findings CBC and BMP: 04/27/18 05:43 04/27/18 10:04 Abnormal lab findings: Abnormal lab results WBC 14.2 K/mcL (4.3-11.1) H 04/27/18 05:43 MCH 33.6 pg (28.0-33.3) H 04/27/18 05:43 MCHC 39.5 g/dL (31.6-35.5) H 04/27/18 05:43 Neutrophils # 11.5 K/mcL (1.6-8.9) H 04/27/18 05:43 Monocytes # 1.4 K/mcL (0.0-1.3) H 04/27/18 05:43 Sodium 118 mEq/L (136-145) L* 04/27/18 10:04 Potassium 3.1 mEq/L (3.5-5.1) L 04/27/18 10:04 Chloride 86 mEq/L (98-107) L 04/27/18 10:04 Carbon Dioxide 21 mEq/L (23-29) L 04/27/18 10:04 Creatinine 1.46 mg/dL (0.70-1.30) H 04/27/18 10:04 Est GFR ( Amer) 57 (> 60) L 04/27/18 10:04 Est GFR (Non-Af Amer) 47 (> 60) L 04/27/18 10:04 Glucose 128 mg/dL (70-105) H 04/27/18 10:04 POC Glucose 100 mg/dL (70-99) H 04/27/18 07:09 Serum Osmolality 251 mOsm/kg (280-300) L 04/27/18 10:04 Calculated Osmolality 251 (280-300) L 04/27/18 10:04 Phosphorus 2.0 mg/dL (2.7-4.5) L 04/27/18 10:04 Total Bilirubin 2.1 mg/dL (0.3-1.0) H 04/27/18 03:17 Direct Bilirubin 0.7 mg/dL (0.0-0.2) H 04/26/18 19:34 Indirect Bilirubin 1.7 mg/dL (0.0-1.2) H 04/26/18 19:34 Creatine Kinase 519 Units/L (30-223) H 04/26/18 19:34 Serum Total Protein 5.6 g/dL (6.4-8.9) L 04/27/18 03:17 Globulin 1.8 g/dL (2.4-3.5) L 04/27/18 03:17 Urine Clarity Cloudy (Clear) A 04/26/18 21:36 Urine Ketones Trace mg/dL (Negative) H 12/18/18 21:36 Urine Bilirubin Small (Negative) H 04/26/18 21:36 Ur Squamous Epith Cells Many per lpf (None-Few) H 04/26/18 21:36 Hyaline Casts Many per lpf (None-Few) H 04/26/18 21:36 - Diagnostic Findings Additional findings: CT OF THE HEAD WITHOUT CONTRAST 04/27/2018 6:26 am TECHNIQUE: CT of the head was performed without the administration of intravenous contrast. Dose modulation, iterative reconstruction, and/or weight based adjustment of the mA/kV was utilized to reduce the radiation dose to as low as reasonably achievable. COMPARISON: 04/26/2018 HISTORY: ORDERING SYSTEM PROVIDED HISTORY: Fall with head trauma Confusion FINDINGS: BRAIN/VENTRICLES: There is no acute intracranial hemorrhage, mass effect or midline shift. No abnormal extra-axial fluid collection. The fitzgerald-white differentiation is maintained without evidence of an acute infarct. There is no evidence of hydrocephalus. There is mild periventricular and subcortical white matter low attenuation. ORBITS: The visualized portion of the orbits demonstrate no acute abnormality. SINUSES: The visualized paranasal sinuses and mastoid air cells demonstrate no acute abnormality. SOFT TISSUES/SKULL: No acute abnormality of the visualized skull or soft tissues. CT/CT head/brain wo con IMPRESSION: No acute hemorrhage or definite evidence for acute ischemia. D/ / Blue Madrid MD / Blue Madrid MD Interpreting Provider: Blue Madrid MD OF THE BRAIN WITHOUT CONTRAST 04/27/2018 12:23 pm TECHNIQUE: Multiplanar multisequence MRI of the brain was performed without the administration of intravenous contrast. COMPARISON: MRI brain 04/12/2018, head CT 04/27/2018 and 04/26/2018 HISTORY: ORDERING SYSTEM PROVIDED HISTORY: TIA History of TIA 2 weeks ago. Last night patient passed out with slurred speech. Ongoing evaluation. Acute symptoms. FINDINGS: INTRACRANIAL STRUCTURES/VENTRICLES: Examination is markedly degraded by patient motion artifact. No diffusion restriction to suggest acute infarction. No mass effect or midline shift. No evidence of an acute intracranial hemorrhage. Diffuse parenchymal volume loss with enlargement of the ventricles and cerebral sulci. Periventricular and subcortical white matter T2/FLAIR hyperintense signal. The sellar/suprasellar regions appear unremarkable. The normal signal voids within the major intracranial vessels appear maintained. ORBITS: The visualized portion of the orbits demonstrate no acute abnormality. SINUSES: The paranasal sinuses and left tympanomastoid cavities are clear. Small amount of fluid in the right mastoid air cells. BONES/SOFT TISSUES: The bone marrow signal intensity appears normal. The soft tissues demonstrate no acute abnormality. MR/MR head/brain wo con IMPRESSION: 1. Examination is markedly degraded by extensive patient motion artifact. 2. Within this limitation, no evidence of acute intracranial abnormality. No acute infarction. 3. Moderate parenchymal volume loss and moderate chronic microvascular ischemic changes. D/ / Macey Ralph MD / Macey Ralph MD Interpreting Provider: Macey Ralph MD OF THE CERVICAL SPINE WITHOUT CONTRAST 04/26/2018 9:31 pm TECHNIQUE: CT of the cervical spine was performed without the administration of intravenous contrast. Multiplanar reformatted images are provided for review. Dose modulation, iterative reconstruction, and/or weight based adjustment of the mA/kV was utilized to reduce the radiation dose to as low as reasonably achievable. COMPARISON: 04/12/2018 HISTORY: ORDERING SYSTEM PROVIDED HISTORY: altered mental status Fall FINDINGS: BONES/ALIGNMENT: No definite fracture is identified. There is minimal anterolisthesis at C3-C4 and C4-C5. Alignment is otherwise normal. DEGENERATIVE CHANGES: Moderate to severe spondylosis is again noted. SOFT TISSUES: There is no prevertebral soft tissue swelling. CT/CT cervical spine wo con IMPRESSION: No acute abnormality of the cervical spine. D/ / Blue Madrid MD / Blue Madrid MD Interpreting Provider: Blue Madrid MD Consult Discharge Plan - Plan Referrals: NONE,PCP [Primary Care Provider] -
[2018-04-27 16:45] LABS: Protein/Creatinine Ratio,Urine 0.21 mg/mg (0.00-0.20)
[2018-04-27] MEDS ORDERED: Potassium Phosphate 44 MEQ in 0.9 % Sodium Chloride 250 ML IVPB ONE (17:24)
--- NOTE | 2018-04-27 19:51 | Event Note ---
Date of Encounter: 04/27/18 Time of Encounter: 11:00 Patient seen and evaluated by nocturnal was earlier this morning and also by myself. Patient is a 69-year-old male who presented with upper extremity weakness with concerns for TIA versus CVA. Patient also with hyponatremia for sodium found to be 118. Neurology consulted for workup of TIA/CVA and nephrology following for management of hyponatremia.
[2018-04-28 02:05] LABS: Albumin 3.4 g/dL (3.5-5.7); BUN/Creatinine Ratio 17 (6-26); Blood Urea Nitrogen 22 mg/dL (8-23); Calcium 8.6 mg/dL (8.6-10.3); Carbon Dioxide 20 mEq/L (23-29); Chloride 91 mEq/L (98-107); Creatine Kinase 400 Units/L (30-223); Glucose 118 mg/dL (70-105); Osmolality,Calculated 256 (280-300); Phosphorous 4.3 mg/dL (2.7-4.5); Potassium 3.3 mEq/L (3.5-5.1); Sodium 121 mEq/L (136-145); eGFR For Non-African Americans 52 (> 60)
[2018-04-28] MEDS: *HR* Heparin 5,000 UNIT/ML VIAL SQ SCH ×2 (05:25→14:20)
[2018-04-28] MEDS: Aspirin Enteric Coated 81 MG Tablet PO SCH (09:12)
--- NOTE | 2018-04-28 09:39 | Internal Med Progress Note ---
Hospitalist Progress Note - Encounter Date of Encounter: 04/28/18 Time of Encounter: 11:00 - Subjective Interval History: Patient with past medical history significant for Alzheimer's, hearing loss and vestibular dysfunction presented due to complaints of weakness and multiple falls worked up for TIA/CVA which was negative on imaging. Patient found to have acute renal failure which is improving. Patient also found to have hyponatremia which is improving as well. - Exam Vitals: Temp Pulse Resp BP Pulse Ox 97.7 F 69 14 130/69 99 04/28/18 08:20 04/28/18 08:20 04/28/18 08:20 04/28/18 08:20 04/28/18 09:21 Exam: Gen.: Nonacute distress, alert and oriented 3 ENT: Mucosal membranes moist Respiratory: Lungs are clear to auscultation bilaterally without any wheezing rhonchi or rales Cardiovascular: Normal S1 and S2 regular rate rhythm no murmurs rubs or gallops Abdomen: Soft, nontender and nondistended with positive bowel sounds Extremities: No lower extremity edema Skin: Normal color - Assessment and Plan (1) Acute renal failure (ARF) Current Visit: Yes Status: Acute Assessment and Plan: Patient with improving acute renal failure suspect secondary to find depletion Continue IV fluids Nephrology following and appreciate recommendations (2) Acute hyponatremia Current Visit: Yes Status: Acute Assessment and Plan: Patient presents with a sodium of 116 on admission which has improved to 121 this morning. Suspect secondary to hypovolemic hyponatremia. Nephrology following with recommendations for continue IV fluids with normal saline (3) Hypokalemia Current Visit: Yes Status: Acute Assessment and Plan: Patient presented with mild hypokalemia of 3.2 which is 3.3 this morning. Will continue potassium supplementation as needed and monitor (4) Leukocytosis Current Visit: Yes Status: Acute Assessment and Plan: Patient found to have a white count of 19.2 on admission which trended down to 14.2 yesterday No source of infection to this point therefore no antibiotics initiated; CT of the chest negative for any infiltrates. Will continue to monitor (5) AAA (abdominal aortic aneurysm) Current Visit: Yes Status: Acute Assessment and Plan: Incidental finding of abdominal aortic aneurysm measuring up to 4.3 cm in transverse dimension on right upper quadrant ultrasound. Will consult vascular surgery and appreciate recommendations. (6) HTN (hypertension), benign Current Visit: Yes Status: Acute Assessment and Plan: Continue home dose of amlodipine and losartan potassium (7) HLD (hyperlipidemia) Current Visit: No Status: Acute Assessment and Plan: Continue home dose of statin (8) Memory loss or impairment Current Visit: No Status: Acute Assessment and Plan: Patient with past medical history of Alzheimer's dementia Neurology following with recommendations for management as an outpatient. DVT Prophylaxis: Subcutaneous heparin - Time Spent with Patient Total time spent is greater than 50% in coordination of care (as documented) at patient's floor/unit and/or counseling patient: Internal Medicine: Result - Labs CBC & Chem 7: 04/28/18 11:34 04/28/18 19:50 Labs: BMP 04/27/18 04/27/18 04/28/18 10:04 18:05 01:31 Sodium 118 L* 120 L* 121 L Potassium 3.1 L 3.3 L Chloride 86 L 91 L Carbon Dioxide 21 L 20 L BUN 22 22 Creatinine 1.46 H 1.32 H Glucose 128 H 118 H Calcium 9.1 8.6 Liver Function 04/27/18 04/28/18 Range/Units 10:04 01:31 Albumin 3.9 3.4 L (3.5-5.7) g/dL - ABG Interpretation ABG results: PT/INR, D-dimer PT 11.7 Seconds (9.4-12.1) 04/27/18 03:17 - Impressions Impressions Head CT 04/26/18 19:15 IMPRESSION: 1. Question of loss of the fitzgerald-white matter differentiation in the occipital lobes, consider acute infarct or posterior reversible encephalopathy syndrome. Consider MRI for further evaluation. 2. Nonspecific white matter disease, likely due to chronic small vessel ischemia. D/ / 04/26/2018 21:44:39 Ruben Beavers MD / kelly Interpreting Provider: Ruben Beavers MD Brain MRI 04/27/18 04:00 IMPRESSION: 1. Examination is markedly degraded by extensive patient motion artifact. 2. Within this limitation, no evidence of acute intracranial abnormality. No acute infarction. 3. Moderate parenchymal volume loss and moderate chronic microvascular ischemic changes. D/ / Macey Ralph MD / Macey Ralph MD Interpreting Provider: Macey Ralph MD Retroperitoneum Ultrasound 04/27/18 14:30 IMPRESSION: No hydronephrosis. D/ / Roberto Palma MD / Roberto Palma MD Interpreting Provider: Roberto Palma MD Gallbladder Ultrasound 04/28/18 07:30 IMPRESSION: 1. Diffuse fatty infiltration of the liver. 2. Abdominal aortic aneurysm measuring up to 4.3 cm in transverse dimension. Recommendations as below. RECOMMENDATIONS: 4.3 cm AAA Recommend vascular consultation and annual follow-up. Reference: J Vasc Surg 2009 Oct;50(4 Suppl):S2-49. D/ / Mukund Nieves MD / Mukund Nieves MD Interpreting Provider: Mukund Nieves MD Consult Discharge Plan - Plan Referrals: NONE,PCP [Primary Care Provider] - (7) HLD (hyperlipidemia) Qualifiers: Hyperlipidemia type: unspecified Qualified Code(s): E78.5 - Hyperlipidemia, unspecified
--- NOTE | 2018-04-28 09:46 | Nephrology Progress Note ---
Date of Encounter: 04/28/18 Time of Encounter: 09:45 - Assessment and Plan (1) Acute hyponatremia Current Visit: Yes Status: Acute Patient with multifactorial acute hyponatremia. Discontinued hydrochlorothiazide. Continue with free water restriction. Agree with continuing with intravenous saline as his rate of rise seems to be reasonable. Replace electrolytes as needed Liberalize diet. At this time I do not see the need to give sodium tablets or 3% saline. His serum sodium level seems to be rising appropriately. (2) Acute kidney injury Current Visit: Yes Status: Acute Acute kidney injury likely secondary to volume depletion. Continue with intravenous saline and monitor renal response. Renal function is improving. Avoid nephrotoxins. (3) CVA (cerebral vascular accident) Current Visit: No Status: Acute Qualifiers: CVA mechanism: unspecified Qualified Code(s): I63.9 - Cerebral infarction, unspecified (4) Encephalopathy acute Current Visit: No Status: Acute Patient with acute encephalopathy. It actually sounds like this encephalopathy is been progressing over the last 2 weeks. It is multifactorial including a recent transient ischemic attack, and significant hyponatremia. Patient also seems to be dehydrated. Neurology is following. Mental status seems to be improved. (5) Hypokalemia Current Visit: Yes Status: Acute Replace as needed. Subjective Principal diagnosis: Hyponatremia Interval history: Patient was seen. His family was at his bedside. He is more alert and more talkative than he was yesterday. His conversation is also more appropriate. Objective - Vital Signs Vital signs: Vital Signs Temp Pulse Resp BP Pulse Ox 04/28/18 09:21 99 04/28/18 08:20 97.7 F 69 14 130/69 99 04/28/18 03:51 98.5 F 60 15 119/74 100 04/28/18 00:04 97.9 F 59 17 111/69 100 04/27/18 19:13 98.0 F 64 15 100/64 100 04/27/18 16:06 97.9 F 67 17 113/66 100 Intake and Output 04/27/18 04/28/18 04/28/18 23:59 07:59 15:59 Intake Total 260 / 260 200 / 200 Output Total 700 / 700 Balance -700 / -700 260 / 260 200 / 200 Intake: IV Fluids 260 / 260 Potassium Phosphate 44 MEQ In 0 260 / 260 .9 % Sodium Chloride 250 ML @ 40 mls/hr IVPB ONCE ONE Rx#: [id number] Oral 200 / 200 Output: Urine 700 / 700 Other: Meal Breakfast Percent of Meal Consumed 45% # Urine Diapers 1 1 - General Appearance General appearance: Present: well-developed, well-nourished EENT: Present: ATNC Neck: Present: supple Cardiology: Present: regular rate Integumentary: Present: warm and dry Additional Comments: Alert, and more oriented than he was yesterday. Psychiatric: Present: mood/affect appropriate - Lab 04/28/18 11:34 04/28/18 09:24 Most recent lab results Calcium 8.6 mg/dL (8.6-10.3) 04/28/18 01:31 Phosphorus 4.3 mg/dL (2.7-4.5) 04/28/18 01:31 Magnesium 1.9 mg/dL (1.6-2.6) 04/27/18 10:04 Urine Creatinine 146 mg/dL 04/27/18 15:55 Urine Total Protein 31 mg/dL (1-14) H 04/27/18 15:55 Consult Discharge Plan - Plan Referrals: NONE,PCP [Primary Care Provider] -
[2018-04-28 11:54] LABS: Basophils # 0.1 K/mcL (0.0-0.2); Basophils % 0.5 %; Eosinophils # 0.1 K/mcL (0.0-0.6); Eosinophils % 0.8 %; Hematocrit 39.3 % (37.5-50.1); Hemoglobin 14.7 g/dL (12.9-16.9); Immature Granulocytes % 0.5 % (0-4); Lymphocytes % 8.6 %; Mean Corpuscular Hemoglobin 33.5 pg (28.0-33.3); Mean Corpuscular Volume 89.5 fL (83.0-100.0); Mean Platelet Volume 9.9 fL (9.4-12.4); Monocytes # 1.1 K/mcL (0.0-1.3); Monocytes % 9.7 %; Neutrophils # 8.9 K/mcL (1.6-8.9); Platelet Count 213 K/mcL (140-400); Red Blood Count 4.39 M/mcL (4.19-5.50); Red Cell Distribution Width 12.6 % (11.5-14.5); Segmented Neutrophils % 79.9 %
[2018-04-28 12:03] LABS: Mean Corpuscular HGB Conc 37.4 g/dL (31.6-35.5)
[2018-04-28] MEDS: 0.9 % Sodium Chloride 1,000 ML IVC SCH (14:19)
[2018-04-28] MEDS ORDERED: Potassium Chloride 40 MEQ, Lidocaine 1% 2 ML in D5% in Water 500 ML IVPB ONE (16:45)
--- NOTE | 2018-04-28 18:47 | Neurology Progress Note ---
Date of Encounter: 04/28/18 Time of Encounter: 18:45 Assessment and Plan (1) Altered mental status Current Visit: Yes Status: Acute Patient's neurological status slightly improved as his medical conditions improve. This appears to be correlating with the improvement with his sodium level and renal function as well as elevated white blood cell count. He is currently alert and awake and oriented to place and person. Language appears fluent. No focal neurological deficits noted.therefore I would recommend continuing medical and supportive care. Would not recommend further testing from a neurological perspective. We will sign off at this time and please call if you have any questions Qualifiers: Altered mental status type: unspecified Qualified Code(s): R41.82 - Altered mental status, unspecified Subjective Principal diagnosis: confusion and frequent falls Interval history: Patient seen and examined. He appears more alert and says that he is feeling slightly better today. He is sitting at the edge of the bed and urinate and he uses urinal with the right hand and left hand grabbing objects freely and no significant weakness observed. Patient also has rather fluent speech and denies any headaches or other pain. Objective - Constitutional Vitals: Temp Pulse Resp BP Pulse Ox 97.5 F L 73 16 132/79 98 04/28/18 16:14 04/28/18 16:14 04/28/18 16:14 04/28/18 16:14 04/28/18 16:14 - Neurological Exam Sensorimotor examination: Present: intact (Grossly intact) Motor Examination: Present: grossly full strength in all extremities Motor examination - right side: 5/5: deltoids, biceps, triceps, wrist flexion, wrist extension, director voice, hip flexors, tibialis Anterior, quadriceps, toe extension (EHL), plantarflexion Motor examination - left side: 5/5: deltoids, biceps, triceps, wrist flexion, wrist extension, hip flexors, director voice, quadriceps, tibialis Anterior, toe extension (EHL), plantarflexion Sensation intact: Present: intact (grossly intact) Posture: Present: other (None) Reflex and gait examination: other (Gait not assessed) Reflexes: Biceps: 1+, Triceps: 1+, Brachioradialis: 1+, Patella: 1+, Achilles: 1+ Mental Status Examination: Present: awake, alert, oriented to place, follows commands appropriately, answers questions appropriately, makes eye contact, follows simple commands (Hard of hearing, once understood he follows command), inattentive, cognitive impairment Cranial nerve examination: Present: PERRL, EOMI, visual medina intact, corneal r eflexes brisk symmetrically, sensory to face intact, mastication intact, no facial asymmetry is present, no dysarthria, hearing is intact symmetrically, soft palate elevates bilaterally upon phonation, gag reflex intact, flexes SCM and trapezius muscles symmetrically with full power, tongue protrudes midline, no atrophy or facial fasiculations present Results - Laboratory Findings CBC and BMP: 04/28/18 11:34 04/28/18 09:24 Abnormal lab findings: Abnormal lab results MCH 33.5 pg (28.0-33.3) H 04/28/18 11:34 MCHC 37.4 g/dL (31.6-35.5) H 04/28/18 11:34 Sodium 125 mEq/L (136-145) L 04/28/18 09:24 Potassium 3.3 mEq/L (3.5-5.1) L 04/28/18 01:31 Chloride 91 mEq/L (98-107) L 04/28/18 01:31 Carbon Dioxide 20 mEq/L (23-29) L 04/28/18 01:31 Creatinine 1.32 mg/dL (0.70-1.30) H 04/28/18 01:31 Est GFR (Non-Af Amer) 52 (> 60) L 04/28/18 01:31 Glucose 118 mg/dL (70-105) H 04/28/18 01:31 POC Glucose 143 mg/dL (70-99) H 04/27/18 10:39 Serum Osmolality 256 mOsm/kg (280-300) L 04/28/18 01:31 Calculated Osmolality 256 (280-300) L 04/28/18 01:31 Total Bilirubin 2.1 mg/dL (0.3-1.0) H 04/27/18 03:17 Direct Bilirubin 0.7 mg/dL (0.0-0.2) H 04/26/18 19:34 Indirect Bilirubin 1.7 mg/dL (0.0-1.2) H 04/26/18 19:34 Creatine Kinase 400 Units/L (30-223) H 04/28/18 01:31 Serum Total Protein 5.6 g/dL (6.4-8.9) L 04/27/18 03:17 Albumin 3.4 g/dL (3.5-5.7) L 04/28/18 01:31 Globulin 1.8 g/dL (2.4-3.5) L 04/27/18 03:17 Urine Clarity Cloudy (Clear) A 04/26/18 21:36 Urine Ketones Trace mg/dL (Negative) H 04/26/18 21:36 Urine Bilirubin Small (Negative) H 04/26/18 21:36 Ur Squamous Epith Cells Many per lpf (None-Few) H 04/26/18 21:36 Hyaline Casts Many per lpf (None-Few) H 04/26/18 21:36 Protein/Creatinin Ratio 0.21 mg/mg (0.00-0.20) H 04/27/18 15:55 Urine Total Protein 31 mg/dL (1-14) H 04/27/18 15:55 Consult Discharge Plan - Plan Referrals: NONE,PCP [Primary Care Provider] -
[2018-04-29] MEDS: *HR* Heparin 5,000 UNIT/ML VIAL SQ SCH ×3 (02:58→20:18)
[2018-04-29] MEDS: 0.9 % Sodium Chloride 1,000 ML IVC SCH ×3 (03:03→16:46)
--- NOTE | 2018-04-29 08:48 | Internal Med Progress Note ---
Hospitalist Progress Note - Encounter Date of Encounter: 04/29/18 Time of Encounter: 11:00 - Subjective Interval History: Patient with past medical history significant for Alzheimer's, hearing loss and vestibular dysfunction presented due to complaints of weakness and multiple falls worked up for TIA/CVA which was negative on imaging. Patient found to have acute renal failure which continues to improve. Patient also found to have hyponatremia which is improving as well. - Exam Vitals: Temp Pulse Resp BP Pulse Ox 98.2 F 60 15 133/77 99 04/29/18 05:00 04/29/18 05:00 04/29/18 05:00 04/29/18 05:00 04/29/18 07:35 Exam: Gen.: Nonacute distress, alert and oriented 3 ENT: Mucosal membranes moist Respiratory: Lungs are clear to auscultation bilaterally without any wheezing rhonchi or rales Cardiovascular: Normal S1 and S2 regular rate rhythm no murmurs rubs or gallops Abdomen: Soft, nontender and nondistended with positive bowel sounds Extremities: No lower extremity edema Skin: Normal color - Assessment and Plan (1) Acute renal failure (ARF) Current Visit: Yes Status: Acute Assessment and Plan: Patient with improving acute renal failure suspect secondary to find depletion Serum creatinine: 1.76->1.46->1.32-> Continue IV fluids Nephrology following and appreciate recommendations (2) Acute hyponatremia Current Visit: Yes Status: Acute Assessment and Plan: Patient presents with a sodium of 116 on admission which has improved to 125 on 04/28/18. Suspect secondary to hypovolemic hyponatremia. Nephrology following with recommendations for continue IV fluids with normal saline (3) Hypokalemia Current Visit: Yes Status: Acute Assessment and Plan: Improving;continue potassium supplementation as needed and monitor (4) Leukocytosis Current Visit: Yes Status: Acute Assessment and Plan: Resolved; patient found to have a white count of 19.2 on admission which trended down to 11.1 yesterday No source of infection to this point therefore no antibiotics initiated; CT of the chest negative for any infiltrates. Will continue to monitor (5) AAA (abdominal aortic aneurysm) Current Visit: Yes Status: Acute Assessment and Plan: Incidental finding of abdominal aortic aneurysm measuring up to 4.3 cm in transverse dimension on right upper quadrant ultrasound. Discussed with vascular surgery with recommendations to follow up in 6 months as an outpatient for monitoring Will control hypertension as below (6) HTN (hypertension), benign Current Visit: Yes Status: Acute Assessment and Plan: Continue home dose of amlodipine and losartan potassium (7) HLD (hyperlipidemia) Current Visit: No Status: Acute Assessment and Plan: Continue home dose of statin (8) Memory loss or impairment Current Visit: No Status: Acute Assessment and Plan: Patient with past medical history of Alzheimer's dementia Neurology following with recommendations for management as an outpatient. DVT Prophylaxis: Subcutaneous heparin - Time Spent with Patient Total time spent is greater than 50% in coordination of care (as documented) at patient's floor/unit and/or counseling patient: Internal Medicine: Result - Labs CBC & Chem 7: 04/29/18 09:18 04/29/18 09:18 Labs: Short CBC 04/28/18 Range/Units 11:34 WBC 11.1 (4.3-11.1) K/mcL Hgb 14.7 (12.9-16.9) g/dL Hct 39.3 (37.5-50.1) % Plt Count 213 (140-400) K/mcL Neutrophils # 8.9 (1.6-8.9) K/mcL BMP 04/28/18 04/28/18 09:24 19:50 Sodium 125 L 125 L - ABG Interpretation ABG results: PT/INR, D-dimer PT 11.7 Seconds (9.4-12.1) 04/27/18 03:17 Consult Discharge Plan - Plan Referrals: NONE,PCP [Primary Care Provider] - (patient needs ECF placement) (7) HLD (hyperlipidemia) Qualifiers: Hyperlipidemia type: unspecified Qualified Code(s): E78.5 - Hyperlipidemia, unspecified
--- NOTE | 2018-04-29 08:58 | Nephrology Progress Note ---
Date of Encounter: 04/29/18 Time of Encounter: 08:57 - Assessment and Plan (1) Acute hyponatremia Current Visit: Yes Status: Acute Patient with multifactorial acute hyponatremia. Discontinued hydrochlorothiazide. Continue with free water restriction. Agree with continuing with intravenous saline as his rate of rise seems to be reasonable. Replace electrolytes as needed Liberalize diet. At this time I do not see the need to give sodium tablets or 3% saline. His serum sodium level seems to be rising appropriately. (2) Acute kidney injury Current Visit: Yes Status: Acute Acute kidney injury likely secondary to volume depletion. Continue with intravenous saline and monitor renal response. Renal function is back to baseline. Avoid nephrotoxins. (3) CVA (cerebral vascular accident) Current Visit: No Status: Acute Qualifiers: CVA mechanism: unspecified Qualified Code(s): I63.9 - Cerebral infarction, unspecified (4) Encephalopathy acute Current Visit: No Status: Acute (5) Hypokalemia Current Visit: Yes Status: Acute Replace as needed. (6) Hypophosphatemia Current Visit: Yes Status: Acute Replace phosphorus as needed. Subjective Principal diagnosis: confusion and frequent falls Interval history: Patient was seen. He has no new complaint. He is still disoriented, but he is alert and answers some questions appropriate.. Objective - Vital Signs Vital signs: Vital Signs Temp Pulse Resp BP Pulse Ox 04/29/18 07:35 99 04/29/18 05:00 98.2 F 60 15 133/77 99 04/29/18 00:27 97.8 F 58 15 118/75 100 04/28/18 21:25 99 04/28/18 19:33 97.6 F 61 15 123/73 99 04/28/18 16:14 97.5 F L 73 16 132/79 98 04/28/18 12:13 97.4 F L 60 16 122/67 100 04/28/18 09:21 99 Intake and Output 04/28/18 04/29/18 04/29/18 23:59 07:59 15:59 Intake Total 640 / 640 1100 / 1100 240 / 240 Output Total 575 / 575 750 / 750 300 / 300 Balance 65 / 65 350 / 350 -60 / -60 Intake: IV Fluids 1000 / 1000 0.9 % Sodium Chloride 1,000 ML 1000 / 1000 @ 75 mls/hr IVC .[id number] [facility] Rx #:[id number] Oral 640 / 640 100 / 100 240 / 240 Output: Urine 575 / 575 750 / 750 300 / 300 Other: Meal Dinner Breakfast Percent of Meal Consumed 0% 40% # Urine Diapers 1 1 Weight 99 kg Patient Weight 04/29/18 23:59 Weight 99 kg - General Appearance General appearance: Present: well-developed, well-nourished EENT: Present: ATNC Neck: Present: supple Cardiology: Present: regular rate - Lab 04/29/18 09:18 04/29/18 09:18 Most recent lab results Calcium 8.6 mg/dL (8.6-10.3) 04/28/18 01:31 Phosphorus 4.3 mg/dL (2.7-4.5) 04/28/18 01:31 Magnesium 1.9 mg/dL (1.6-2.6) 04/27/18 10:04 Urine Creatinine 146 mg/dL 04/27/18 15:55 Urine Sodium 37.2 mEq/L 04/29/18 01:00 Urine Total Protein 31 mg/dL (1-14) H 04/27/18 15:55 Consult Discharge Plan - Plan Referrals: NONE,PCP [Primary Care Provider] - (patient needs ECF placement)
[2018-04-29] MEDS: Aspirin Enteric Coated 81 MG Tablet PO SCH (09:42)
[2018-04-29 09:45] LABS: Basophils % 0.5 %; Eosinophils # 0.1 K/mcL (0.0-0.6); Eosinophils % 1.4 %; Hematocrit 36.4 % (37.5-50.1); Hemoglobin 13.3 g/dL (12.9-16.9); Immature Granulocytes % 0.5 % (0-4); Lymphocytes # 0.8 K/mcL (0.6-4.6); Lymphocytes % 9.4 %; Mean Corpuscular HGB Conc 36.5 g/dL (31.6-35.5); Mean Corpuscular Hemoglobin 33.5 pg (28.0-33.3); Mean Corpuscular Volume 91.7 fL (83.0-100.0); Mean Platelet Volume 9.9 fL (9.4-12.4); Monocytes # 0.6 K/mcL (0.0-1.3); Monocytes % 7.2 %; Neutrophils # 7.1 K/mcL (1.6-8.9); Platelet Count 196 K/mcL (140-400); Red Blood Count 3.97 M/mcL (4.19-5.50); Red Cell Distribution Width 12.7 % (11.5-14.5)
[2018-04-29] MEDS ORDERED: *HR* Heparin 5,000 UNIT/ML VIAL SQ SCH (10:00)
[2018-04-29 10:04] LABS: Albumin 3.3 g/dL (3.5-5.7); BUN/Creatinine Ratio 13 (6-26); Blood Urea Nitrogen 13 mg/dL (8-23); Calcium 8.7 mg/dL (8.6-10.3); Carbon Dioxide 25 mEq/L (23-29); Chloride 98 mEq/L (98-107); Glucose 137 mg/dL (70-105); Magnesium 1.7 mg/dL (1.6-2.6); Osmolality,Calculated 270 (280-300); Phosphorous 1.6 mg/dL (2.7-4.5); Sodium 129 mEq/L (136-145); eGFR For Non-African Americans > 60 (> 60)
--- NOTE | 2018-04-29 18:00 | Electrocardiograph Report ---
[address] [address] Test Date: 2018-04-26 Pat Name: Fransico Adamson Department: [id number] Room: 2A33 Gender: M [employer]: : [id number] Requested By: Tyler Noriega Order Number: [id number] Reading MD: Mishel Chinchilla Measurements Intervals Horatio Rate: 66 P: 45 WV: 199 QRS: -40 QRSD: 134 T: 69 QT: 444 QTc: 466 Interpretive Statements Sinus rhythm Left axis deviation Left bundle branch block Electronically Signed On 04-29-2018 17:58:34 EST by Mishel Chinchilla
[2018-04-30] MEDS: *HR* Heparin 5,000 UNIT/ML VIAL SQ SCH ×3 (05:23→21:11)
[2018-04-30] MEDS: 0.9 % Sodium Chloride 1,000 ML IVC SCH ×2 (05:28→21:11)
[2018-04-30] MEDS: Aspirin Enteric Coated 81 MG Tablet PO SCH (08:15)
--- NOTE | 2018-04-30 09:36 | Nephrology Progress Note ---
Date of Encounter: 04/30/18 Time of Encounter: 09:36 - Assessment and Plan (1) Acute hyponatremia Current Visit: Yes Status: Acute Patient with multifactorial acute hyponatremia. Discontinued hydrochlorothiazide. Continue with free water restriction. Replace electrolytes as needed Liberalize diet. At this time I do not see the need to give sodium tablets or 3% saline. His serum sodium level seems to be rising appropriately. Continue current plan. Will sign off. Call if questions or concerns. (2) Acute kidney injury Current Visit: Yes Status: Acute Acute kidney injury likely secondary to volume depletion. Continue with intravenous saline and monitor renal response. Renal function is back to baseline. Avoid nephrotoxins. (3) CVA (cerebral vascular accident) Current Visit: No Status: Acute Qualifiers: CVA mechanism: unspecified Qualified Code(s): I63.9 - Cerebral infarction, unspecified (4) Encephalopathy acute Current Visit: No Status: Acute (5) Hypokalemia Current Visit: Yes Status: Acute (6) Hypophosphatemia Current Visit: Yes Status: Acute Subjective Principal diagnosis: confusion and frequent falls Interval history: Patient was seen. He has no new complaint. He is still disoriented, but he is alert and answers some questions appropriately.. Objective - Vital Signs Vital signs: Vital Signs Temp Pulse Resp BP Pulse Ox 04/30/18 08:14 98.5 F 60 17 134/72 98 04/30/18 07:27 97.7 F 57 18 159/67 97 04/30/18 03:51 97.8 F 64 17 145/67 95 04/30/18 01:05 97.9 F 81 17 150/85 95 04/29/18 21:26 97.4 F L 80 17 142/87 94 04/29/18 20:30 92 04/29/18 16:01 97.7 F 86 16 149/79 95 04/29/18 10:45 98.3 F 71 18 118/72 94 Intake and Output 04/29/18 04/30/18 04/30/18 23:59 07:59 15:59 Intake Total 1120 / 1120 120 / 120 Output Total 250 / 250 450 / 450 Balance 870 / 870 -330 / -330 Intake: IV Fluids 1000 / 1000 0 / 0 0.9 % Sodium Chloride 1,000 ML 1000 / 1000 0 / 0 @ 75 mls/hr IVC .[id number] REPLACED BY [facility] Rx #:[id number] Oral 120 / 120 120 / 120 Output: Urine 450 / 450 Catheter 250 / 250 Other: # Urine Diapers 1 Weight 99.3 kg Patient Weight 04/30/18 23:59 Weight 99.3 kg - General Appearance General appearance: Present: well-developed, well-nourished EENT: Present: ATNC Cardiology: Present: regular rate Psychiatric: Present: mood/affect appropriate - Lab 04/30/18 09:48 04/30/18 09:48 Most recent lab results Calcium 8.7 mg/dL (8.6-10.3) 04/29/18 09:18 Phosphorus 1.6 mg/dL (2.7-4.5) L 04/29/18 09:18 Magnesium 1.7 mg/dL (1.6-2.6) 04/29/18 09:18 Urine Creatinine 146 mg/dL 04/27/18 15:55 Urine Sodium 108.3 mEq/L 04/29/18 20:25 Urine Total Protein 31 mg/dL (1-14) H 04/27/18 15:55 Consult Discharge Plan - Plan Referrals: NONE,PCP [Primary Care Provider] - (patient needs ECF placement)
[2018-04-30 10:23] LABS: Albumin 3.3 g/dL (3.5-5.7); BUN/Creatinine Ratio 13 (6-26); Blood Urea Nitrogen 11 mg/dL (8-23); Calcium 8.6 mg/dL (8.6-10.3); Carbon Dioxide 26 mEq/L (23-29); Chloride 100 mEq/L (98-107); Glucose 76 mg/dL (70-105); Osmolality,Calculated 272 (280-300); Phosphorous 2.3 mg/dL (2.7-4.5); Sodium 132 mEq/L (136-145); eGFR For Non-African Americans > 60 (> 60)
--- NOTE | 2018-04-30 10:28 | Internal Med Progress Note ---
Hospitalist Progress Note - Encounter Date of Encounter: 04/30/18 Time of Encounter: 11:00 - Subjective Interval History: Patient with past medical history significant for Alzheimer's, hearing loss and vestibular dysfunction presented due to complaints of weakness and multiple falls worked up for TIA/CVA which was negative on imaging. [facility]waiting placement to [facility] facility - Exam Vitals: Temp Pulse Resp BP Pulse Ox 98.5 F 60 17 134/72 98 04/30/18 08:14 04/30/18 08:14 04/30/18 08:14 04/30/18 08:14 04/30/18 08:14 Exam: Gen.: Nonacute distress, alert and oriented 1 ENT: Mucosal membranes moist Respiratory: Lungs are clear to auscultation bilaterally without any wheezing rhonchi or rales Cardiovascular: Normal S1 and S2 regular rate rhythm no murmurs rubs or gallops Abdomen: Soft, nontender and nondistended with positive bowel sounds Extremities: No lower extremity edema Skin: Normal color - Assessment and Plan (1) Goals of care, counseling/discussion Current Visit: Yes Status: Acute Assessment and Plan: Family/ patient has decided for [facility] facility placement and awaiting choice and certification (2) Acute renal failure (ARF) Current Visit: Yes Status: Acute Assessment and Plan: Resolved; continue IV fluids Nephrology following and appreciate recommendations (3) Acute hyponatremia Current Visit: Yes Status: Acute Assessment and Plan: Improving; Serum Na 113->120->125->129->132 Suspect secondary to hypovolemic hyponatremia. Nephrology following with recommendations for continue IV fluids with normal s jena (4) Hypokalemia Current Visit: Yes Status: Acute Assessment and Plan: Resolve;continue potassium supplementation as needed and monitor (5) Leukocytosis Current Visit: Yes Status: Acute Assessment and Plan: Resolved No source of infection to this point therefore no antibiotics initiated; CT of the chest negative for any infiltrates. Will continue to monitor (6) AAA (abdominal aortic aneurysm) Current Visit: Yes Status: Acute Assessment and Plan: Incidental finding of abdominal aortic aneurysm measuring up to 4.3 cm in transverse dimension on right upper quadrant ultrasound. Discussed with vascular surgery with recommendations to follow up in 6 months as an outpatient for monitoring Will control hypertension as below (7) HTN (hypertension), benign Current Visit: Yes Status: Acute Assessment and Plan: Continue home dose of amlodipine and losartan potassium (8) HLD (hyperlipidemia) Current Visit: No Status: Acute Assessment and Plan: Continue home dose of statin (9) Memory loss or impairment Current Visit: No Status: Acute Assessment and Plan: Patient with past medical history of Alzheimer's dementia Neurology following with recommendations for management as an outpatient. DVT Prophylaxis: Subcutaneous heparin - Time Spent with Patient Total time spent is greater than 50% in coordination of care (as documented) at patient's floor/unit and/or counseling patient: Internal Medicine: Result - Labs CBC & Chem 7: 04/30/18 09:48 04/30/18 09:48 Labs: BMP 04/30/18 09:48 Sodium 132 L Potassium 4.0 Chloride 100 Carbon Dioxide 26 BUN 11 Creatinine 0.86 Glucose 76 Calcium 8.6 Liver Function 04/30/18 Range/Units 09:48 Albumin 3.3 L (3.5-5.7) g/dL - ABG Interpretation ABG results: PT/INR, D-dimer PT 11.7 Seconds (9.4-12.1) 04/27/18 03:17 Consult Discharge Plan - Plan Referrals: NONE,PCP [Primary Care Provider] - (patient needs ECF placement) (8) HLD (hyperlipidemia) Qualifiers: Hyperlipidemia type: unspecified Qualified Code(s): E78.5 - Hyperlipidemia, unspecified
[2018-04-30 10:45] LABS: Basophils % 0.5 %; Eosinophils # 0.2 K/mcL (0.0-0.6); Eosinophils % 1.9 %; Hematocrit 37.5 % (37.5-50.1); Hemoglobin 13.3 g/dL (12.9-16.9); Immature Granulocytes % 0.6 % (0-4); Lymphocytes # 0.9 K/mcL (0.6-4.6); Lymphocytes % 9.9 %; Mean Corpuscular HGB Conc 35.5 g/dL (31.6-35.5); Mean Corpuscular Hemoglobin 33.3 pg (28.0-33.3); Mean Corpuscular Volume 93.8 fL (83.0-100.0); Mean Platelet Volume 9.7 fL (9.4-12.4); Monocytes # 0.9 K/mcL (0.0-1.3); Monocytes % 10.3 %; Neutrophils # 6.8 K/mcL (1.6-8.9); Platelet Count 220 K/mcL (140-400); Red Cell Distribution Width 12.9 % (11.5-14.5); Segmented Neutrophils % 76.8 %
[2018-04-30] MEDS ORDERED: Isovue-370 500 ML INFUS..BTL IV ONE (14:43)
[2018-04-30 14:52] LABS: ABG Base Excess -3 mEq/L (-2 to 3); ABG HCO3 19 mEq/L (21-27); ABG Oxygen Saturation 87 % (95-98); ABG PCO2 25 mmHg (35-45); ABG PH 7.49 pH Units (7.32-7.45); ABG PO2 47 mmHg (85-104); ABG TCO2 20 mEq/L (20-26)
[2018-04-30 16:49] LABS: ABG Base Excess -1 mEq/L (-2 to 3); ABG HCO3 23 mEq/L (21-27); ABG Oxygen Saturation 99 % (95-98); ABG PCO2 33 mmHg (35-45); ABG PH 7.46 pH Units (7.32-7.45); ABG PO2 121 mmHg (85-104); ABG TCO2 24 mEq/L (20-26)
--- NOTE | 2018-04-30 19:11 | Event Note ---
Date of Encounter: 04/30/18 Time of Encounter: 15:00 Patient developed acute hypoxic respiratory failure this afternoon thought any improvement on high flow supplemental oxygenation. Patient had to be placed on CPAP due to increased oxygen saturation to the 90s Vital signs remained stable and patient remained alert and oriented. Initial ABG on high flow oxygen revealed a PO2 of 47 with a CO2 of 24 Patient's x-ray negative for any infiltrates and CT PA negative for pulmonary embolism Later on in the afternoon HE was able to be weaned off CPAP and placed back on high flow oxygen mask; repeat ABG revealed a PO2 of 121 Suspect acute hypoxic respiratory failure secondary to mucus plugging Will order Mucomyst and percussion therapy ordered as well. He has been transferred to a higher acuity service to the progressive unit and will monitor overnight. Patient's code status still being discussed as for now is a FULL CODE with intubation.
[2018-04-30] MEDS: Acetylcysteine 10% 2 ML INHSOL IH SCH (20:16)
[2018-04-30] MEDS: Ipratropium/Albuterol Neb 3 ML IH SCH (20:16)
[2018-05-01] MEDS: Ipratropium/Albuterol Neb 3 ML IH SCH ×7 (00:03→23:14)
[2018-05-01] MEDS: Acetylcysteine 10% 2 ML INHSOL IH SCH ×4 (04:13→20:02)
[2018-05-01] MEDS: *HR* Heparin 5,000 UNIT/ML VIAL SQ SCH ×3 (06:43→21:51)
[2018-05-01] MEDS: Aspirin Enteric Coated 81 MG Tablet PO SCH (07:55)
--- NOTE | 2018-05-01 07:59 | Internal Med Progress Note ---
Hospitalist Progress Note - Encounter Date of Encounter: 05/01/18 Time of Encounter: 11:00 - Subjective Interval History: Patient with past medical history significant for Alzheimer's, hearing loss and vestibular dysfunction presented due to complaints of weakness and multiple falls; neurological workup negative Patient was also found to be hyponatremic which has resolved as has hypokalemia. In addition patient was in acute renal failure which has resolved as well. Patient developed acute hypoxic respiratory failure yesterday and required NIPPV; CT PE negative for PE and chest x-ray negative for any infiltrates Patient's acute hypoxic respiratory failure has resolved this morning as he has been on room air without any respiratory distress Awaiting placement to alf facility - Exam Vitals: Temp Pulse Resp BP Pulse Ox 98.1 F 65 18 101/51 96 05/01/18 07:16 05/01/18 07:16 05/01/18 07:16 05/01/18 07:16 05/01/18 07:16 Exam: Gen.: Nonacute distress, alert and oriented 1 ENT: Mucosal membranes moist Respiratory: Lungs are clear to auscultation bilaterally without any wheezing rhonchi or rales Cardiovascular: Normal S1 and S2 regular rate rhythm no murmurs rubs or gallops Abdomen: Soft, nontender and nondistended with positive bowel sounds Extremities: No lower extremity edema Skin: Normal color - Assessment and Plan (1) Acute respiratory failure with hypoxia Current Visit: Yes Status: Acute Assessment and Plan: Resolved this morning as patient on room air with sats in the mid 90s Patient developed acute hypoxic respiratory failure yesterday without any improvement on high flow supplemental oxygenation. Patient had to be placed on CPAP due to increased oxygen saturation to the 90s Vital signs remained stable and patient remained alert and oriented. Initial ABG on high flow oxygen revealed a PO2 of 47 with a CO2 of 24 Patient's x-ray negative for any infiltrates and CT PA negative for pulmonary e mbolism Later on in the afternoon HE was able to be weaned off CPAP and placed back on high flow oxygen mask; repeat ABG revealed a PO2 of 121 Suspect acute hypoxic respiratory failure secondary to mucus plugging Patient currently on room air as above Will continue Mucomyst and percussion therapy (2) Acute renal failure (ARF) Current Visit: Yes Status: Acute Assessment and Plan: Resolved; continue IV fluids Nephrology following and appreciate recommendations (3) Acute hyponatremia Current Visit: Yes Status: Acute Assessment and Plan: Improving; Serum Na 113->120->125->129->132->131 Suspect secondary to hypovolemic hyponatremia. Nephrology following with recommendations for continue IV fluids with normal saline (4) Hypokalemia Current Visit: Yes Status: Acute Assessment and Plan: Resolve;continue potassium supplementation as needed and monitor (5) Leukocytosis Current Visit: Yes Status: Acute Assessment and Plan: Resolved No source of infection to this point therefore no antibiotics initiated; CT of the chest negative for any infiltrates. Will continue to monitor (6) AAA (abdominal aortic aneurysm) Current Visit: Yes Status: Acute Assessment and Plan: Incidental finding of abdominal aortic aneurysm measuring up to 4.3 cm in transverse dimension on right upper quadrant ultrasound. Discussed with vascular surgery with recommendations to follow up in 6 months as an outpatient for monitoring Will control hypertension as below (7) HTN (hypertension), benign Current Visit: Yes Status: Acute Assessment and Plan: Continue home dose of amlodipine and losartan potassium (8) HLD (hyperlipidemia) Current Visit: No Status: Acute Assessment and Plan: Continue home dose of statin (9) Memory loss or impairment Current Visit: No Status: Acute Assessment and Plan: Patient with past medical history of Alzheimer's dementia Neurology following with recommendations for management as an outpatient. (10) Goals of care, counseling/discussion Current Visit: Yes Status: Acute Assessment and Plan: Family/ patient has decided for alf facility placement and awaiting choice and certification DVT Prophylaxis: Heparin subcutaneous - Time Spent with Patient Total time spent is greater than 50% in coordination of care (as documented) at patient's floor/unit and/or counseling patient: Internal Medicine: Result - Labs CBC & Chem 7: 05/01/18 07:56 05/01/18 07:56 Labs: Short CBC 04/30/18 Range/Units 09:48 WBC 8.8 (4.3-11.1) K/mcL Hgb 13.3 (12.9-16.9) g/dL Hct 37.5 (37.5-50.1) % Plt Count 220 (140-400) K/mcL Neutrophils # 6.8 (1.6-8.9) K/mcL BMP 04/30/18 09:48 Sodium 132 L Potassium 4.0 Chloride 100 Carbon Dioxide 26 BUN 11 Creatinine 0.86 Glucose 76 Calcium 8.6 Cardiac Enzymes 04/30/18 Range/Units 17:11 Troponin I < 0.03 (< 0.04) ng/mL Liver Function 04/30/18 Range/Units 09:48 Albumin 3.3 L (3.5-5.7) g/dL - ABG Interpretation ABG results: ABG ABG pH 7.46 pH Units (7.32-7.45) H 04/30/18 16:43 ABG pCO2 33 mmHg (35-45) L 04/30/18 16:43 ABG pO2 121 mmHg (85-104) H D 04/30/18 16:43 ABG O2 Saturation 99 % (95-98) H 04/30/18 16:43 PT/INR, D-dimer PT 11.7 Seconds (9.4-12.1) 04/27/18 03:17 - Impressions Impressions Chest X-Ray 04/30/18 14:27 IMPRESSION: 1. No radiographic finding to account for patient's shortness of breath. D/ / Suhail Orellana MD / Suhail Orellana MD Interpreting Provider: Suhail Orellana MD Chest CTA 04/30/18 14:43 IMPRESSION: Negative CTA for pulmonary embolus. Stable 4.7 cm diameter ascending aorta. This is similar to the remote study from 06/30/2007. Emphysematous changes. D/ / 04/30/2018 16:24:16 Jason Swann MD / earnold Interpreting Provider: Jason Swann MD Consult Discharge Plan - Plan Referrals: NONE,PCP [Primary Care Provider] - (patient needs ECF placement) (8) HLD (hyperlipidemia) Qualifiers: Hyperlipidemia type: unspecified Qualified Code(s): E78.5 - Hyperlipidemia, unspecified
[2018-05-01 08:05] LABS: Basophils # 0.1 K/mcL (0.0-0.2); Basophils % 0.7 %; Eosinophils # 0.2 K/mcL (0.0-0.6); Eosinophils % 3.6 %; Hematocrit 36.2 % (37.5-50.1); Immature Granulocytes % 0.6 % (0-4); Lymphocytes # 1.3 K/mcL (0.6-4.6); Lymphocytes % 18.7 %; Mean Corpuscular HGB Conc 35.9 g/dL (31.6-35.5); Mean Corpuscular Hemoglobin 33.5 pg (28.0-33.3); Mean Corpuscular Volume 93.3 fL (83.0-100.0); Mean Platelet Volume 9.4 fL (9.4-12.4); Monocytes # 0.7 K/mcL (0.0-1.3); Monocytes % 9.7 %; Neutrophils # 4.5 K/mcL (1.6-8.9); Platelet Count 209 K/mcL (140-400); Red Blood Count 3.88 M/mcL (4.19-5.50); Red Cell Distribution Width 12.9 % (11.5-14.5); Segmented Neutrophils % 66.7 %
[2018-05-01 08:25] LABS: Alanine Aminotransferase 15 Units/L (7-52); Albumin 3.1 g/dL (3.5-5.7); Albumin/Globulin Ratio 1.6 (1.1-2.2); Alkaline Phosphatase 59 Units/L (34-104); Aspartate Amino Transferase 12 Units/L (13-39); BUN/Creatinine Ratio 17 (6-26); Bilirubin,Total 1.1 mg/dL (0.3-1.0); Blood Urea Nitrogen 14 mg/dL (8-23); Calcium 8.7 mg/dL (8.6-10.3); Carbon Dioxide 23 mEq/L (23-29); Chloride 103 mEq/L (98-107); Glucose 111 mg/dL (70-105); Osmolality,Calculated 273 (280-300); Potassium 4.1 mEq/L (3.5-5.1); Sodium 131 mEq/L (136-145); Total Protein 5.1 g/dL (6.4-8.9); eGFR For Non-African Americans > 60 (> 60)
[2018-05-02] MEDS: 0.9 % Sodium Chloride 1,000 ML IVC SCH ×3 (02:46→15:15)
[2018-05-02] MEDS: Ipratropium/Albuterol Neb 3 ML IH SCH ×6 (03:46→23:36)
[2018-05-02] MEDS: Acetylcysteine 10% 2 ML INHSOL IH SCH ×4 (03:46→23:36)
[2018-05-02] MEDS: *HR* Heparin 5,000 UNIT/ML VIAL SQ SCH ×3 (06:49→21:26)
[2018-05-02] MEDS: Aspirin Enteric Coated 81 MG Tablet PO SCH (08:47)
--- NOTE | 2018-05-02 09:29 | Internal Med Progress Note ---
Hospitalist Progress Note - Encounter Date of Encounter: 05/02/18 - Subjective Interval History: Patient with past medical history significant for Alzheimer's, hearing loss and vestibular dysfunction presented due to complaints of weakness and multiple falls; neurological workup negative Patient was also found to be hyponatremic which has resolved as has hypokalemia. In addition patient was in acute renal failure which has resolved as well. Patient developed acute hypoxic respiratory failure yesterday and required NIPPV; CT PE negative for PE and chest x-ray negative for any infiltrates Patient's acute hypoxic respiratory failure has resolved; patient remains on room air without any respiratory distress Awaiting placement to long term facility - Exam Vitals: Temp Pulse Resp BP Pulse Ox 97.9 F 69 18 159/79 100 05/02/18 07:27 05/02/18 07:27 05/02/18 07:27 05/02/18 07:27 05/02/18 07:27 - Assessment and Plan (1) Acute respiratory failure with hypoxia Current Visit: Yes Status: Acute Assessment and Plan: Resolved; patient on room air with sats in the mid 90s Patient developed acute hypoxic respiratory failure on 04/30/18 without any improvement on high flow supplemental oxygenation. Patient had to be placed on CPAP due to increased oxygen saturation to the 90s Vital signs remained stable and patient remained alert and oriented. Initial ABG on high flow oxygen revealed a PO2 of 47 with a CO2 of 24 Patient's x-ray negative for any infiltrates and CT PA negative for pulmonary em bolism Later on in the afternoon HE was able to be weaned off CPAP and placed back on high flow oxygen mask; repeat ABG revealed a PO2 of 121 Suspect acute hypoxic respiratory failure secondary to mucus plugging Patient remains on room air without any respiratory distress Will continue Mucomyst and percussion therapy (2) Acute renal failure (ARF) Current Visit: Yes Status: Acute Assessment and Plan: Resolved; continue IV fluids Nephrology following and appreciate recommendations (3) Acute hyponatremia Current Visit: Yes Status: Acute Assessment and Plan: Improving; Serum Na 113->120->125->129->132->131-> Suspect secondary to hypovolemic hyponatremia. Nephrology following with recommendations for continue IV fluids with normal saline (4) Hypokalemia Current Visit: Yes Status: Acute Assessment and Plan: Resolve;continue potassium supplementation as needed and monitor (5) Leukocytosis Current Visit: Yes Status: Acute Assessment and Plan: Resolved No source of infection to this point therefore no antibiotics initiated; CT of the chest negative for any infiltrates. Will continue to monitor (6) AAA (abdominal aortic aneurysm) Current Visit: Yes Status: Acute Assessment and Plan: Incidental finding of abdominal aortic aneurysm measuring up to 4.3 cm in transverse dimension on right upper quadrant ultrasound. Discussed with vascular surgery with recommendations to follow up in 6 months as an outpatient for monitoring Will control hypertension as below (7) HTN (hypertension), benign Current Visit: Yes Status: Acute Assessment and Plan: Continue home dose of amlodipine and losartan potassium (8) HLD (hyperlipidemia) Current Visit: No Status: Acute Assessment and Plan: Continue home dose of statin (9) Memory loss or impairment Current Visit: No Status: Acute Assessment and Plan: Patient with past medical history of Alzheimer's dementia Neurology following with recommendations for management as an outpatient. (10) Goals of care, counseling/discussion Current Visit: Yes Status: Acute Assessment and Plan: Family/ patient has decided for long term facility placement and awaiting choice and certification - Time Spent with Patient Total time spent is greater than 50% in coordination of care (as documented) at patient's floor/unit and/or counseling patient: Internal Medicine: Result - Labs CBC & Chem 7: 05/01/18 07:56 05/01/18 07:56 - ABG Interpretation ABG results: ABG ABG pH 7.46 pH Units (7.32-7.45) H 04/30/18 16:43 ABG pCO2 33 mmHg (35-45) L 04/30/18 16:43 ABG pO2 121 mmHg (85-104) H D 04/30/18 16:43 ABG O2 Saturation 99 % (95-98) H 04/30/18 16:43 PT/INR, D-dimer PT 11.7 Seconds (9.4-12.1) 04/27/18 03:17 Consult Discharge Plan - Plan Referrals: NONE,PCP [Primary Care Provider] - (patient needs ECF placement) (8) HLD (hyperlipidemia) Qualifiers: Hyperlipidemia type: unspecified Qualified Code(s): E78.5 - Hyperlipidemia, unspecified
[2018-05-02 11:08] LABS: Basophils % 0.6 %; Eosinophils # 0.3 K/mcL (0.0-0.6); Eosinophils % 3.9 %; Hematocrit 36.5 % (37.5-50.1); Hemoglobin 12.7 g/dL (12.9-16.9); Immature Granulocytes % 0.8 % (0-4); Lymphocytes # 0.9 K/mcL (0.6-4.6); Mean Corpuscular HGB Conc 34.8 g/dL (31.6-35.5); Mean Corpuscular Hemoglobin 33.2 pg (28.0-33.3); Mean Corpuscular Volume 95.3 fL (83.0-100.0); Mean Platelet Volume 9.3 fL (9.4-12.4); Monocytes # 0.7 K/mcL (0.0-1.3); Monocytes % 10.4 %; Neutrophils # 4.7 K/mcL (1.6-8.9); Platelet Count 224 K/mcL (140-400); Red Blood Count 3.83 M/mcL (4.19-5.50); Segmented Neutrophils % 70.3 %
[2018-05-02 11:27] LABS: BUN/Creatinine Ratio 13 (6-26); Blood Urea Nitrogen 12 mg/dL (8-23); Calcium 8.7 mg/dL (8.6-10.3); Carbon Dioxide 23 mEq/L (23-29); Chloride 100 mEq/L (98-107); Glucose 113 mg/dL (70-105); Osmolality,Calculated 277 (280-300); Potassium 3.9 mEq/L (3.5-5.1); Sodium 133 mEq/L (136-145); eGFR For Non-African Americans > 60 (> 60)
--- NOTE | 2018-05-02 18:35 | Discharge Summary ---
- NOTES TO OUTPATIENT PROVIDER Notes to Outpatient Provider: none Orders not resulted at time of discharge: Pending orders 04/30/18 14:27 ABG Chemistry Profile Stat Date of Encounter: 05/02/18 Time of Encounter: 11:00 - Discharge Diagnosis (1) Acute respiratory failure with hypoxia Priority: Primary Status: Acute (2) Acute renal failure (ARF) Priority: Primary Status: Acute Qualifiers: Acute renal failure type: unspecified Qualified Code(s): N17.9 - Acute kidney failure, unspecified (3) Acute hyponatremia Priority: Primary Status: Acute (4) Hypokalemia Priority: Primary Status: Acute (5) Leukocytosis Priority: Secondary Status: Acute Qualifiers: Leukocytosis type: other Qualified Code(s): D72.828 - Other elevated white blood cell count (6) AAA (abdominal aortic aneurysm) Priority: Secondary Status: Acute Qualifiers: Presence of rupture: without rupture Qualified Code(s): I71.4 - Abdominal aortic aneurysm, without rupture (7) HTN (hypertension), benign Priority: Secondary Status: Acute (8) HLD (hyperlipidemia) Priority: Secondary Status: Acute Qualifiers: Hyperlipidemia type: unspecified Qualified Code(s): E78.5 - Hyperlipidemia, unspecified (9) Memory loss or impairment Priority: Primary Status: Acute (10) Goals of care, counseling/discussion Priority: Secondary Status: Acute Hospital course: Patient is a 77-year-old male with past medical history significant for hypertension, CT, and recent hospitalization for CVA who presents to the ER due to complaints of weakness. Per EMS report, patient was noted to have a left sided upper and lower extremity weakness which resolved by the time the patient arrived to the ER. In the ER, CT scan of the head and neck revealed possible acute posterior infarct versus encephalopathic changes but no evidence of hemorrhage. Labs were notable for a significant hyponatremia 116. Nephrology was consulted and fluids were begun at 125 mL's per hour. During patients hospital stay neurology was consulted due to patients change in mental status with negative workup; suspect Alzheimers dementia worsening per neurology. Patient also developed acute hypoxic respiratory failure without any improvement on high flow supplemental oxygenation. Patient had to be placed on CPAP due to increased oxygen saturation to the 90s Vital signs remained stable and patient remained alert and oriented. Initial ABG on high flow oxygen revealed a PO2 of 47 with a CO2 of 24 Patient's x-ray negative for any infiltrates and CT PA negative for pulmonary embolism Later on in the afternoon HE was able to be weaned off CPAP and placed back on high flow oxygen mask; repeat ABG revealed a PO2 of 121 Suspect acute hypoxic respiratory failure secondary to mucus plugging Patient currently on room air as above without any other issues for respiratory distress. Patients hyponatremia also improved; Serum Na 113->120->12 5->129->132->131->133. Suspect secondary to hypovolemic hyponatremia. Patients acute renal failure also resolved with IV fluids and hypokalemia improved with potassium supplementation. Patient is medically stable to be discharged to intermediate facility for strengthening conditioning. - Time Spent with Patient Total time spent providing and/or coordinating discharge services: - Discharge Medications Home Medications: Clopidogrel [Plavix] 75 mg PO DAILY 04/12/18 [History] Losartan Potassium [Cozaar] 100 mg PO DAILY 04/12/18 [History] hydroCHLOROthiazide [Hydrochlorothiazide] 25 mg PO DAILY 04/12/18 [History] Aspirin Enteric Coated [Aspirin EC] 81 mg PO DAILY #30 tablet. 04/13/18 [Rx] Rosuvastatin [Crestor] 40 mg PO HS #0 04/13/18 [Rx] amLODIPine [Norvasc] 5 mg PO DAILY #30 tablet 04/13/18 [Rx] Allergies/Adverse Reactions: Allergy/AdvReac Type Severity Reaction Status Date / Time No Known Allergies Allergy Verified 04/12/18 03:07 Date of admission: 04/27/18 05:06 Primary care physician: PCP NONE Consults: 04/26/18 21:44 Consult to Nephrology [CONS] Stat Consulting Provider: [facility]/MONIQUE/ISAC/BINH Reason for Consult: hyponatremia Time Notified: 21:45 Call Completed: Yes 04/26/18 22:07 Consult to Neurology [CONS] Routine Consulting Provider: [facility] Reason for Consult: Concern for TIA Call Completed: No 04/27/18 13:08 Consult to Occupational Therapy [CONS] Routine Comment: Evaluate, develop and implement POC Reason for Consult: frequent falls Does patient have active BEDREST order?: No Is patient medically & hemodynamically stable?: Yes Patient assessed for mobility or mobilized this visit?: Yes Consult to Physical Therapy [CONS] Routine Comment: Evaluate, develop and implement POC Reason for Consult: frequent falls Does patient have active BEDREST order?: No Is patient medically & hemodynamically stable?: Yes Patient assessed for mobility or mobilized this visit?: Yes 04/29/18 09:41 Consult to City Maintenance Manager [CONS] Routine Reason for SW Consult: needs ecf - Constitutional Vitals: Temp Pulse Resp BP Pulse Ox 98.4 F 91 16 145/75 93 05/02/18 16:28 05/02/18 16:28 05/02/18 16:28 05/02/18 16:28 05/02/18 16:28 Exam: Gen.: Nonacute distress, alert and oriented 1 ENT: Mucosal membranes moist Respiratory: Lungs are clear to auscultation bilaterally without any wheezing rhonchi or rales Cardiovascular: Normal S1 and S2 regular rate rhythm no murmurs rubs or gallops Abdomen: Soft, nontender and nondistended with positive bowel sounds Extremities: No lower extremity edema Skin: Normal color - Patient Status Disposition: Transfer SNF Condition: Fair - Discharge Instructions Follow Up With: NONE,PCP [Primary Care Provider] - (patient needs ECF placement)
[2018-05-03] MEDS: Ipratropium/Albuterol Neb 3 ML IH SCH ×6 (03:19→23:09)
[2018-05-03] MEDS: Acetylcysteine 10% 2 ML INHSOL IH SCH ×4 (03:19→21:37)
[2018-05-03] MEDS: *HR* Heparin 5,000 UNIT/ML VIAL SQ SCH ×3 (06:04→22:19)
[2018-05-03] MEDS: 0.9 % Sodium Chloride 1,000 ML IVC SCH ×2 (06:04→22:28)
[2018-05-03] MEDS: Aspirin Enteric Coated 81 MG Tablet PO SCH (09:06)
[2018-05-03] MEDS: amLODIPine 5 MG TABLET PO SCH (09:06)
--- NOTE | 2018-05-03 12:52 | Internal Med Progress Note ---
Hospitalist Progress Note - Encounter Date of Encounter: 05/03/18 Time of Encounter: 12:43 - Subjective Interval History: Patient seen and examined bedside. No acute overnight events. Denies new complaints. Mental status at baseline per family at bedside after started on oxygen. - Exam Vitals: Temp Pulse Resp BP Pulse Ox 98.2 F 76 17 171/83 97 05/03/18 07:08 05/03/18 12:10 05/03/18 10:46 05/03/18 07:08 05/03/18 10:46 Exam: General: In no acute distress. Conversant. Respiratory exam: CTAB. no accessory muscle use, rales, rhonchi, wheezes Cardiovascular exam: RRR, +S1, +S2. no murmur, gallop, rubs. GI/Abdominal exam: Non-tender, Non-distended, normal bowel sounds, soft, no peritoneal signs. Extremities exam: full ROM, no pedal edema, warm, pulses palpable in b/l lower extremities. no calf tenderness Neurological exam: CN II-XII intact, AO X2, no focal deficits. no pronater drift, facial droop, speech deficit Skin exam: No skin rash, ulcer, purpura or ecchymosis. - Assessment and Plan (1) HLD (hyperlipidemia) Current Visit: No Status: Acute (2) Memory loss or impairment Current Visit: No Status: Acute (3) Acute hyponatremia Current Visit: Yes Status: Acute (4) Hypokalemia Current Visit: Yes Status: Acute (5) Acute renal failure (ARF) Current Visit: Yes Status: Acute (6) Leukocytosis Current Visit: Yes Status: Acute (7) AAA (abdominal aortic aneurysm) Current Visit: Yes Status: Acute (8) HTN (hypertension), benign Current Visit: Yes Status: Acute (9) Goals of care, counseling/discussion Current Visit: Yes Status: Acute (10) Acute respiratory failure with hypoxia Current Visit: Yes Status: Acute - Summary of Assessment and Plan Summary of Assessment and Plan: AMS, weakness and Memory loss or impairment - h/o Alzheimer's dementia - Possible related to hyponatremia. May be some contribution from hypoxia. - Imaging mostly unremarkble for current event. - Neurology following with recommendations for management as an outpatient. Acute respiratory failure with hypoxia - Resolved - CXR did not show any infiltrates and CTA negative for pulmonary embolism - thought to be due to mucus plugging - Will get Oxygen qualification evaluation - c/w Mucomyst and percussion therapy Acute renal failure -Resolved - continue IV fluids Acute hyponatremia - resolved - Suspect secondary to hypovolemic hyponatremia. - c/w normal saline Hypokalemia - Resolved - potassium supplementation as needed and monitor Leukocytosis - Resolved - No source of infection. CT of the chest negative for any infiltrates. - Monitor for now AAA - Incidental finding of abdominal aortic aneurysm measuring up to 4.3 cm - to follow up in 6 months as an outpatient for monitoring - c/w anti-hypertensives HTN - stable and controlled - c/w amlodipine and losartan potassium Goals of care, counseling/discussion - Awaiting snf facility placement DVT Prophylaxis: - Heparin subcutaneous - Time Spent with Patient Total time spent is greater than 50% in coordination of care (as documented) at patient's floor/unit and/or counseling patient: Internal Medicine: Result - Labs CBC & Chem 7: 05/02/18 10:26 05/02/18 10:26 - ABG Interpretation ABG results: ABG ABG pH 7.46 pH Units (7.32-7.45) H 04/30/18 16:43 ABG pCO2 33 mmHg (35-45) L 04/30/18 16:43 ABG pO2 121 mmHg (85-104) H D 04/30/18 16:43 ABG O2 Saturation 99 % (95-98) H 04/30/18 16:43 PT/INR, D-dimer PT 11.7 Seconds (9.4-12.1) 04/27/18 03:17 Consult Discharge Plan - Plan Referrals: NONE,PCP [Primary Care Provider] - (patient needs ECF placement) (1) HLD (hyperlipidemia) Qualifiers: Hyperlipidemia type: unspecified Qualified Code(s): E78.5 - Hyperlipidemia, unspecified (5) Acute renal failure (ARF) Qualifiers: Acute renal failure type: unspecified Qualified Code(s): N17.9 - Acute kidney failure, unspecified (6) Leukocytosis Qualifiers: Leukocytosis type: other Qualified Code(s): D72.828 - Other elevated white blood cell count (7) AAA (abdominal aortic aneurysm) Qualifiers: Presence of rupture: without rupture Qualified Code(s): I71.4 - Abdominal aortic aneurysm, without rupture
[2018-05-04] MEDS: Ipratropium/Albuterol Neb 3 ML IH SCH ×6 (04:28→23:12)
[2018-05-04] MEDS: Acetylcysteine 10% 2 ML INHSOL IH SCH ×4 (04:28→20:08)
[2018-05-04] MEDS: *HR* Heparin 5,000 UNIT/ML VIAL SQ SCH ×2 (05:33→14:34)
[2018-05-04] MEDS: Aspirin Enteric Coated 81 MG Tablet PO SCH (08:22)
[2018-05-04] MEDS: amLODIPine 5 MG TABLET PO SCH (08:22)
--- NOTE | 2018-05-04 09:58 | Internal Med Progress Note ---
Hospitalist Progress Note - Encounter Date of Encounter: 05/04/18 Time of Encounter: 08:46 - Subjective Interval History: Patient seen and examined bedside. No acute overnight events. Mental status same as yesterday which is baseline per family. - Exam Vitals: Temp Pulse Resp BP Pulse Ox 97.5 F L 86 20 136/82 95 05/04/18 07:05 05/04/18 08:32 05/04/18 08:30 05/04/18 07:05 05/04/18 07:33 Exam: General: In no acute distress. Conversant. Respiratory exam: CTAB. no accessory muscle use, rales, rhonchi, wheezes Cardiovascular exam: RRR, +S1, +S2. no murmur, gallop, rubs. GI/Abdominal exam: Non-tender, Non-distended, normal bowel sounds, soft, no peritoneal signs. Extremities exam: full ROM, no pedal edema, warm, pulses palpable in b/l lower extremities. no calf tenderness Neurological exam: CN II-XII intact, AO X2, no focal deficits. no pronater drift, facial droop, speech deficit Skin exam: No skin rash, ulcer, purpura or ecchymosis. - Assessment and Plan (1) HLD (hyperlipidemia) Current Visit: No Status: Acute (2) Memory loss or impairment Current Visit: No Status: Acute (3) Acute hyponatremia Current Visit: Yes Status: Acute (4) Hypokalemia Current Visit: Yes Status: Acute (5) Acute renal failure (ARF) Current Visit: Yes Status: Acute (6) Leukocytosis Current Visit: Yes Status: Acute (7) AAA (abdominal aortic aneurysm) Current Visit: Yes Status: Acute (8) HTN (hypertension), benign Current Visit: Yes Status: Acute (9) Goals of care, counseling/discussion Current Visit: Yes Status: Acute (10) Acute respiratory failure with hypoxia Current Visit: Yes Status: Acute - Summary of Assessment and Plan Summary of Assessment and Plan: AMS, weakness and Memory loss or impairment - h/o Alzheimer's dementia - Possible related to hyponatremia. - Imaging mostly unremarkble for current event. - Neurology following with recommendations for management as an outpatient. Acute respiratory failure with hypoxia - Resolved - CXR did not show any infiltrates and CTA negative for pulmonary embolism - thought to be due to mucus plugging - Did not qualify for oxygen. - c/w Mucomyst and percussion therapy Acute renal failure - Resolved - continue maintainance IV fluids till discharged Acute hyponatremia - resolved - Suspect secondary to hypovolemic hyponatremia. - c/w normal saline Hypokalemia - Resolved - potassium supplementation as needed and monitor Leukocytosis - Resolved - No source of infection. CT of the chest negative for any infiltrates. - Monitor for now AAA - Incidental finding of abdominal aortic aneurysm measuring up to 4.3 cm - to follow up in 6 months as an outpatient for monitoring - c/w anti-hypertensives HTN - stable and controlled - c/w amlodipine and losartan potassium DVT Prophylaxis: - Heparin subcutaneous Awaiting [facility] facility placement - Time Spent with Patient Total time spent is greater than 50% in coordination of care (as documented) at patient's floor/unit and/or counseling patient: Internal Medicine: Result - Labs CBC & Chem 7: 05/02/18 10:26 05/02/18 10:26 - ABG Interpretation ABG results: ABG ABG pH 7.46 pH Units (7.32-7.45) H 04/30/18 16:43 ABG pCO2 33 mmHg (35-45) L 04/30/18 16:43 ABG pO2 121 mmHg (85-104) H D 04/30/18 16:43 ABG O2 Saturation 99 % (95-98) H 04/30/18 16:43 PT/INR, D-dimer PT 11.7 Seconds (9.4-12.1) 04/27/18 03:17 Consult Discharge Plan - Plan Referrals: NONE,PCP [Primary Care Provider] - (patient needs ECF placement) (1) HLD (hyperlipidemia) Qualifiers: Hyperlipidemia type: unspecified Qualified Code(s): E78.5 - Hyperlipidemia, unspecified (5) Acute renal failure (ARF) Qualifiers: Acute renal failure type: unspecified Qualified Code(s): N17.9 - Acute kidney failure, unspecified (6) Leukocytosis Qualifiers: Leukocytosis type: other Qualified Code(s): D72.828 - Other elevated white blood cell count (7) AAA (abdominal aortic aneurysm) Qualifiers: Presence of rupture: without rupture Qualified Code(s): I71.4 - Abdominal aortic aneurysm, without rupture
[2018-05-04] MEDS: 0.9 % Sodium Chloride 1,000 ML IVC SCH (11:38)
[2018-05-04 15:51] VITALS: BP 140/75
--- NOTE | 2018-05-04 17:26 | Electrocardiograph Report ---
[place] [id number] Test Date: 2018-04-30 Pat Name: Fransico Adamson Department: 109 Room: 2N04 Gender: M Drafter: : 1940 Requested By: Lee Ramirez Order Number: [id number] Reading MD: Summer Spears Measurements Intervals [place] Rate: 82 P: -81 UT: 138 QRS: -18 QRSD: 110 T: -17 QT: 345 QTc: 384 Interpretive Statements SINUS RHYTHM LEFT AXIS IVCD INFERIOR MYOCARDIAL INFARCTION, PROBABLY OLD Electronically Signed On 05-04-2018 17:25:16 EST by Summer Spears
--- NOTE | 2018-05-06 19:28 | Physician Discharge Referral ---
[facility] Referral Info Institutional Level of Care: Skilled - Diagnosis (1) HLD (hyperlipidemia) Status: Acute (2) Memory loss or impairment Status: Acute (3) Acute hyponatremia Status: Acute (4) Hypokalemia Status: Acute (5) Acute renal failure (ARF) Status: Acute (6) Leukocytosis Status: Acute (7) AAA (abdominal aortic aneurysm) Status: Acute (8) HTN (hypertension), benign Status: Acute (9) Goals of care, counseling/discussion Status: Acute (10) Acute respiratory failure with hypoxia Status: Acute - Transfer Medications Home Medications: Clopidogrel [Plavix] 75 mg PO DAILY 04/12/18 [History] Losartan Potassium [Cozaar] 100 mg PO DAILY 04/12/18 [History] hydroCHLOROthiazide [Hydrochlorothiazide] 25 mg PO DAILY 04/12/18 [History] Aspirin Enteric Coated [Aspirin EC] 81 mg PO DAILY #30 tablet.dr 04/13/18 [Rx] Rosuvastatin [Crestor] 40 mg PO HS #0 04/13/18 [Rx] amLODIPine [Norvasc] 5 mg PO DAILY #30 tablet 04/13/18 [Rx] Allergies/Adverse Reactions: Allergy/AdvReac Type Severity Reaction Status Date / Time No Known Allergies Allergy Verified 04/12/18 03:07 - Respiratory Orders Smoking Cessation: Smoking cessation has been advised. For more information, call the [place] Tobacco Quit Line at 0-466-RQKK-NOW. - Rehabiliation Orders Rehab Orders: Evaluation for Physical Therapy CERTIFICATION: I certify that the transfer of the above named patient to an Extended Care Facility is necessary for the continuing treatment of the diagnosis listed. The above information is true and accurate reflection of patient's current condition. Confidential - Redisclosure prohibited without a patient's written consent.
== END 2018-05-04 18:35 | DRG 640 ==
LOC: EMEROOARM 19:05 → 2ANU 19:05 → SUATTDRO 04-27 05:06 → 2ANU 04-29 08:37 → 2NNU 04-30 16:07
PROVIDERS: ADMIT Internal Medicine; ATTEND Internal Medicine